=== PATIENT | male | born 1995 | race Caucasian/White ===

== ENCOUNTER 2017-03-15 12:39 | Inpatient (IN) | payer OTHER ==
[2017-03-15 13:38] LABS: Hematocrit 43 % (42-52); Hemoglobin 14.1 g/dl (14.0-18.0); Mean Corpuscular HGB Conc 33 g/dl (31-36); Mean Corpuscular Hemoglobin 27 pg (27-31); Mean Corpuscular Volume 83 fL (80-94); Mean Platelet Volume 9 um3 (7.4-10.4); Red Blood Count 5.18 10^6/ul (4.0-5.4); Red Cell Distribution Width 17 % (10.5-15); White Blood Count 4.8 10^3/ul (3.5-10.8)
[2017-03-15 13:51] LABS: ALT 22 U/L (7-52); AST 18 U/L (13-39); Albumin 4.3 g/dL (3.2-5.2); Alkaline Phosphatase 39 U/L (34-104); Anion Gap 1 mmol/L (2-11); BUN/Creatinine Ratio 17.5 (8-20); Blood Urea Nitrogen 17 mg/dL (6-24); CO2 Carbon Dioxide 32 mmol/L (22-32); Calcium 9.9 mg/dL (8.6-10.3); Chloride 101 mmol/L (101-111); EGFR African American 123.3 (>60); EGFR Non-African American 95.9 (>60); Glucose 87 mg/dL (70-100); Sodium 134 mmol/L (133-145); Total Protein 7.3 g/dL (6.4-8.9)
[2017-03-15 14:01] LABS: Benzodiazepine Urine Screen None Detected (None Detect)
[2017-03-15 14:09] LABS: Acetaminophen < 15 mcg/mL; Alcohol < 10 mg/dL (<10); Salicylate < 2.50 mg/dL (<30)
[2017-03-15 14:22] LABS: TSH (Thyroid Stimulating Horm) 0.38 mcIU/mL (0.34-5.60)
[2017-03-15] MEDS ORDERED: Al Hydrox/Mg Hydrox/Simet LIQ* 30 ML UDC PO PRN (22:45)
[2017-03-15] MEDS ORDERED: Acetaminophen TAB* 325 MG PO PRN (22:45)
--- NOTE | 2017-03-16 05:36 | ED ---
Ami Madsen Nilda, scribed for Haris Kaur MD on 03/15/17 at 1909 . Progress - Progress Note Progress Note: This patient was signed out by Dr. Bach, awaiting MHE. Mental health evaluators recommend inpatient hospitalization. Pt is stable and will be admitted for inpatient hospitalization. - Consult/PCP Time Called: 17:00 Course/Dx - Diagnoses Provider Diagnoses: Suicidal ideation The documentation as recorded by the Ami de jesus Nilda accurately reflects the service I personally performed and the decisions made by Natasha milan Abdul, MD.
--- NOTE | 2017-03-16 07:47 | ED ---
Ramez Madsen Angela, scribed for Db Bach MD on 03/15/17 at 1304 . Psychiatric Complaint - HPI Summary HPI Summary: This pt is a 22 y/o male presenting [facility] by [facility] c/o depression and SI. Pt reports difficulty sleeping, decreased appetite , and SI thoughts. He denies SI plan. Pt denies any prior suicide attempts. Pt was prescribed medications but had not taken it until yesterday, which he notes made it worse. PMHx includes liver CA (diagnosed 2014 in [place]). Pt has 2 partial liver surgery, one in 2014 and the other in 2016. Pt denies tobacco, drug, and alcohol use. - History Of Current Complaint Chief Complaint: EDMentalHealth Time Seen by Provider: 03/15/17 12:49 Hx Obtained From: Patient Onset/Duration: Lasting Days, Still Present Timing: Days Character: Depressed Aggravating Factor(s): Medication Non-compliance Associated Signs And Symptoms: Positive: Sleep Disturbance, Appetite Change Has Suicidal: Reports: Thoughts. Denies: With A Plan - Allergies/Home Medications Allergies/Adverse Reactions: Allergies Allergy/AdvReac Type Severity Reaction Status Date / Time No Known Allergies Allergy Verified 03/15/17 12:45 PMH/Surg Hx/FS Hx/Imm Hx Endocrine/Hematology History: Denies: Hx Diabetes Cardiovascular History: Denies: Hx Hypertension History: Denies: Hx Dialysis, Hx Renal Disease - Cancer History Cancer Type, Location and Year: Liver, 2014 - Surgical History Surgery Procedure, Year, and Place: Liver resection June 2014 and 2016. Infectious Disease History: No Infectious Disease History: Denies: Traveled Outside the [place] in Last 30 Days - Family History Known Family History: Negative: Cardiac Disease, Hypertension, Diabetes - Social History Alcohol Use: None Substance Use Type: Reports: None Smoking Status (MU): Never Smoked Tobacco Review of Systems Constitutional: Other - decreased appetite, difficulty sleeping Negative: Fever, Chills Eyes: Negative ENT: Negative Cardiovascular: Negative Respiratory: Negative Psychological: Other - SI thoughts Positive: Depressed. Negative: Other - SI plan All Other Systems Reviewed And Are Negative: Yes Physical Exam - Summary Physical Exam Summary: VITAL SIGNS: Reviewed. GENERAL: Patient is a well-developed and nourished male who is lying comfortable in the stretcher. Patient is not in any acute respiratory distress. HEAD AND FACE: No signs of trauma. No ecchymosis, hematomas or skull depressions. No sinus tenderness. EYES: PERRLA, EOMI x 2, No injected conjunctiva, no nystagmus. EARS: Hearing grossly intact. Ear canals and tympanic membranes are within normal limits. MOUTH: Oropharynx within normal limits. NECK: Supple, trachea is midline, no adenopathy, no JVD, no carotid bruit, no c- spine tenderness, neck with full ROM. CHEST: Symmetric, no tenderness at palpation LUNGS: Clear to auscultation bilaterally. No wheezing or crackles. CVS: Regular rate and rhythm, S1 and S2 present, no murmurs or gallops appreciated. ABDOMEN: Soft, non-tender. No signs of distention. No rebound no guarding, and no masses palpated. Bowel sounds are normal. EXTREMITIES: FROM in all major joints, no edema, no cyanosis or clubbing. NEURO: Alert and oriented x 3. No acute neurological deficits. Speech is normal and follows commands. SKIN: Dry and warm PSYCH: Depressed, quiet, stoic appearance. Triage Information Reviewed: Yes Vital Signs On Initial Exam: Initial Vitals Temp Pulse Resp BP Pulse Ox 98.2 F 50 15 126/74 98 03/15/17 12:43 03/15/17 12:43 03/15/17 12:43 03/15/17 12:43 03/15/17 12:43 Vital Signs Reviewed: Yes Diagnostics - Vital Signs Vital Signs Temp Pulse Resp BP Pulse Ox 03/15/17 12:43 98.2 F 50 15 126/74 98 - Laboratory Result Diagrams: 03/15/17 13:18 03/15/17 13:18 Lab Statement: Any lab studies that have been ordered have been reviewed, and results considered in the medical decision making process. Course/Dx - Course Assessment/Plan: This pt is a 22 y/o male presenting to [facility] referred by [facility] c/o depression. Pt reports difficulty sleeping, decreased appetite, and SI thoughts. He denies SI plan. Pt denies any prior suicide attempts. Pt was prescribed medications but had not taken it until yesterday, which he notes made it worse. PMHx includes liver CA (diagnosed 2014 in [place]). Pt has 2 partial liver surgery, one in 2014 and the other in 2016. Pt denies tobacco, drug, and alcohol use. All blood work within normal limits except for positive cannabinoids. Pt is medically cleared. He is waiting for MHE. Pt will be signed out to the next ER attending to follow up on mental health pelletizer tender's recommendations. - Differential Dx/Clinical Impression Provider Diagnosis: Suicidal ideation Discharge - Discharge Plan Condition: Stable Disposition: OTHER Discharge Disposition Comment: signed out at shift change, pending dispo, awaiting MHE. Referrals: No Primary Care Phys,NOPCP [Medical Doctor] - The documentation as recorded by the Ramez de jesus Angela accurately reflects the service I personally performed and the decisions made by me, Db Bach MD.
[2017-03-16] MEDS: Vitamin THERAPEUTIC TAB PO SCH (09:36)
[2017-03-16 14:21] LABS: Urine Bilirubin Negative (Negative); Urine Glucose Negative (Negative); Urine Nitrite Negative (Negative)
--- NOTE | 2017-03-16 19:04 | HP ---
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 This is his first lifetime psychiatric hospitalization. CHIEF COMPLAINT: "I have thought about ending my life seriously." HISTORY OF PRESENT ILLNESS: Schuyler reports that he has been depressed ever since he was a child off and on. Recently, his depressive symptoms have worsened and he does not have any desire to do anything, but end his life. He has been feeling sad and was not experiencing any pleasure out of activities that he found pleasurable in the past such as playing soccer or doing chemistry. He also reports that he has been feeling helpless, hopeless, and worthless. Denies any guilt feeling. He had a plan to soak a ski mask in chloroform wear it and pour more chloroform to pass out and never wake up. On today's evaluation, he has not thought about any plan, but continues to have desire to end his life. He denies any manic, hypomanic, or psychotic symptoms. He has been experiencing some difficulty with his school work and recurrence of his liver cancer has been on his mind all the time. PAST PSYCHIATRIC HISTORY: Although, he suffered from depression ever since he was a child. He never received ongoing treatments. He went to [place] and they tried him on antidepressant Pristiq, which he could not tolerate. PAST MEDICAL HISTORY: He has a history of liver cancer, which can only be excised, it is not treatable with chemo or radiation therapy. ALLERGIES: No known drug allergies. SUBSTANCE ABUSE HISTORY: He denies using any street drugs including marijuana, but his urine drug screen was positive for cannabinoids. FAMILY HISTORY: Denies family history of mental illness, attempted or completed suicide. 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 He is from [place]. Reports that he has not been doing that good in school. He does not have any significant relationship. He reports that he received some treatment at around 9 or 10 after he tried to kill himself. He enjoyed work in soccer and had some head trauma from soccer. He reports that his family has been supportive. He has supportive friends and the program has been generally supportive to him. PHYSICAL EXAMINATION Physical exam was offered; however, he declined because that was dinner time and dinner was being served. He did not appear to be in any physical distress. I reviewed physical done in the emergency department, which was basically unremarkable. Vital signs shows a blood pressure of 126/74, pulse 50, respirations 15, temperature 98.2, pulse ox 98% on room air. LABORATORY DATA: Labs done included, WBC with differential, chemistry profile , urinalysis, urine drug screen, and tox screen. WBC count was 4.8, hemoglobin 14.1, hematocrit 43, platelet count 147. Chem profile shows a sodium level of 134, potassium 4, chloride 101, carbon dioxide 32, BUN 17, creatinine 0.97. Urinalysis unremarkable. UDS was positive for cannabinoids. 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 He had another suicide attempt at around age 10. He has a diagnosis of liver cancer diagnosed in 2014 in [place]; had 2 liver surgeries, one in 2014 and the other this year. The liver cancer keeps reoccurring, causing severe stress in him. DIAGNOSTIC IMPRESSION: MENTAL HEALTH DIAGNOSIS: Major depressive disorder, recurrent, severe without psychotic features. PHYSICAL HEALTH DIAGNOSIS: Liver carcinoma, status post partial removal of the liver cancer. TREATMENT RECOMMENDATIONS: Schuyler will remain hospitalized on behavioral health unit for his safety, initiation of treatments, and stabilization of acute depressive symptoms. His code status will be full. Supportive milieu, individual, and group therapy will be initiated and he will be encouraged to participate. He has agreed to try Remeron low dose. Risks, benefits, and alternatives to different treatments explained and he would like to try Remeron. I will prescribe 7.5 mg of Remeron starting tonight and we will defer further management to his assigned psychiatrist on the unit. [id number]/[facility] #: [id number] [facility]PITAL CENTERJosafat
[2017-03-17] MEDS: Vitamin THERAPEUTIC TAB PO SCH (09:51)
[2017-03-17] MEDS ORDERED: hydrOXYzine HCL TAB* 50 MG PO PRN (14:15)
[2017-03-17] MEDS ORDERED: buPROPion TAB* 100 MG PO ONE (14:15)
--- NOTE | 2017-03-17 14:29 | PN ---
Subjective - Subjective Service Type: 87257 Hosp care 15 min low complexity Subjective: Patient presents as dysphoric and anxious. He endorses SI and states this worsened when he took one dose of an old Rx of pristique. He reports poor concentration and motivation. He reports difficulty with maintaining sleep schedule. He is agreeable to suggestions by staff. 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 Objective - Appearance Appearance: Thin Framed Dysmorphic Features: Yes Hygiene: Normal Grooming: Fairly Well Kept - Behavior Psychomotor Activities: Normal Exhibits Abnormal Movement: No - Attitude and Relatedness Attitude and Relatedness: Cooperative Eye Contact: Good - Speech Quality: Unpressured Latencies: Normal Quantity: Appropriate - Mood Patient's Decription of Mood: "Anxious" - Affect Observed Affect: Depressed Affect Consistent with: Dysphoria - Thought Process Patient's Thought Process: Coherent, Goal Directed Thought Content: Yes Passive Wish, Yes Suicidal Planning, No Homicidal Ideation, No Paranoid Ideation - Sensorium Experiencing Hallucinations: No, Sensorium is Clear Type of Hallucinations: Visual: No, Auditory: No, Command: No - Level of Consciousness Level of Consciousness: Alert Orientation: Yes Intact, Yes Orientated to Time, Yes Orientated to Place, Yes Orientated to Person - Impulse Control Impulse Control: Poor - Insight and Judgement Insight and Judgement: Fair - Group Participation Particating in Group Activities: Yes - Medication Management Medication Management Adherence: Yes Assessment - Assessment Merits Inpatient Hospitalization: For Immediate Safety, For Stabilization, To Initiate Treatment, For Discharge Planning Inpatient DSM-IV Dx: major depressive d/o with anxious distress; hx of liver ca Clinical Impression: 22yo white male, 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 He presents with increased depressed mood, SI and anxiety. He merits hospitalization for immediate safety and stabilization. Plan - Plan Treatment Plan: Name: CHEPE SULLIVAN Birthdate: 1995 [id number] continue acute intensive psychiatric treatment. add buproprion and hydroxyzine. Monitor LFTs. Decrease to q30min observation, allow use of own computer. Continued Medication Management: Different Medication Medications: Current Medications Acetaminophen (Tylenol Tab*) 650 mg PO Q4H PRN PRN Reason: PAIN or TEMP > 101 F Al Hydrox/Mg Hydrox/Simethicone (Maalox Plus*) 30 ml PO Q4H PRN PRN Reason: INDIGESTION Bupropion HCl (Wellbutrin Xl *) 150 mg PO DAILY [facility] PRN Reason: Protocol Hydroxyzine HCl (Atarax Tab*) 50 mg PO Q6H PRN PRN Reason: agitation/anxiety/insomnia Multivitamins (Theragran Tab*) 1 tab PO DAILY [facility] Last Admin: 03/17/17 09:51 Dose: 1 tab - Discharge Plan Discharge Plan: Outpatient Follow Up Outpatient Program: Counseling/Psych Services at [place]
[2017-03-18] MEDS: Vitamin THERAPEUTIC TAB PO SCH (08:10)
[2017-03-18] MEDS: BuPROPion XL* 150 MG TAB.XL PO SCH (08:10)
--- NOTE | 2017-03-18 14:36 | PN ---
Subjective - Subjective Service Type: 20850 Hosp care 15 min low complexity Subjective: Schuyler is calm, cooperative and pleasant. He denies any untoward effects from bupropion therapy thus far and has transitioned to the extended release formulation of this. He denies SI here in the hospital but is still stressed about his circumstances and cannot yet contract for safety if discharged. He is social with peers and going to groups per staff notes. Objective - Appearance Appearance: Well Developed/Nourished Dysmorphic Features: No Hygiene: Normal Grooming: Well Kept - Behavior Psychomotor Activities: Normal Exhibits Abnormal Movement: No - Attitude and Relatedness Attitude and Relatedness: Cooperative Eye Contact: Good - Speech Quality: Unpressured Latencies: Normal Quantity: Appropriate - Mood Patient's Decription of Mood: "Okay" - Affect Observed Affect: Fair Affect Consistent with: Dysphoria - Thought Process Patient's Thought Process: Coherent Thought Content: No Passive Wish, No Suicidal Planning, No Homicidal Ideation, No Paranoid Ideation - Sensorium Experiencing Hallucinations: No, Sensorium is Clear Type of Hallucinations: Visual: No, Auditory: No, Command: No - Level of Consciousness Level of Consciousness: Alert Orientation: Yes Intact, Yes Orientated to Time, Yes Orientated to Place, Yes Orientated to Person - Impulse Control Impulse Control: Tenuous - Insight and Judgement Insight and Judgement: Fair - Group Participation Particating in Group Activities: Yes - Medication Management Medication Management Adherence: Yes Assessment - Assessment Merits Inpatient Hospitalization: For Immediate Safety, For Stabilization Inpatient DSM-IV Dx: major depressive d/o with anxious distress; hx of liver ca Clinical Impression: 22 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 Plan - Plan Treatment Plan: Name: SCHUYLER SULLIVAN Birthdate: 1995 [id number] Patient tolerating bupropion XL 150mg PO qam. Continue inpatient level services. Continued Medication Management: Start Medication Medications: Current Medications Acetaminophen (Tylenol Tab*) 650 mg PO Q4H PRN PRN Reason: PAIN or TEMP > 101 F Al Hydrox/Mg Hydrox/Simethicone (Maalox Plus*) 30 ml PO Q4H PRN PRN Reason: INDIGESTION Bupropion HCl (Wellbutrin Xl *) 150 mg PO DAILY [facility] PRN Reason: Protocol Last Admin: 03/18/17 08:10 Dose: 150 mg Hydroxyzine HCl (Atarax Tab*) 50 mg PO Q6H PRN PRN Reason: agitation/anxiety/insomnia Multivitamins (Theragran Tab*) 1 tab PO DAILY [facility] Last Admin: 03/18/17 08:10 Dose: 1 tab - Discharge Plan Discharge Plan: Inpatient Hospitalization
[2017-03-19] MEDS: BuPROPion XL* 150 MG TAB.XL PO SCH (08:33)
[2017-03-19] MEDS: Vitamin THERAPEUTIC TAB PO SCH (08:34)
[2017-03-20] MEDS: Vitamin THERAPEUTIC TAB PO SCH (08:21)
[2017-03-20] MEDS: BuPROPion XL* 150 MG TAB.XL PO SCH (08:21)
[2017-03-20] MEDS: Methylphenidate TAB* 5 MG PO SCH (12:36)
--- NOTE | 2017-03-20 12:46 | PN ---
Subjective - Subjective Service Type: 00454 Hosp care 25 min moderate complexity Subjective: Patient reports improvement in depressed mood and negative thoughts. He also reports decrease in anxiety. He states his biggest concern is poor concentration. He states he fears not being able to focus on academic responsibilities and then returning to emotional state that led to hospitalization. 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 He agrees to trial of methylphenidate. He was given written information and questions answered. Patient reported to nursing staff he felt somewhat "jittery" and c/o "itchy eyes." Patient reports sleeping moderately well, except for hospital environment. He is notified of use of hydroxyzine for anxiety/seasonal allergies and sleep. Objective - Appearance Appearance: Thin Framed Dysmorphic Features: No Hygiene: Normal Grooming: Fairly Well Kept - Behavior Psychomotor Activities: Normal Exhibits Abnormal Movement: No - Attitude and Relatedness Attitude and Relatedness: Cooperative Eye Contact: Good - Speech Quality: Unpressured Latencies: Normal Quantity: Appropriate - Mood Patient's Decription of Mood: "Okay" - Affect Observed Affect: Good Affect Consistent with: Euthymia - Thought Process Patient's Thought Process: Coherent, Goal Directed Thought Content: No Passive Wish, No Suicidal Planning, No Homicidal Ideation, No Paranoid Ideation - Sensorium Experiencing Hallucinations: No, Sensorium is Clear Type of Hallucinations: Visual: No, Auditory: No, Command: No - Level of Consciousness Orientation: Yes Intact, Yes Orientated to Time, Yes Orientated to Place, Yes Orientated to Person - Impulse Control Impulse Control: Intact - Insight and Judgement Insight and Judgement: Good - Group Participation Particating in Group Activities: No - Medication Management Medication Management Adherence: Yes Assessment - Assessment Merits Inpatient Hospitalization: For Immediate Safety, For Stabilization, To Initiate Treatment, For Discharge Planning, Pending Safe DC Plan Inpatient DSM-IV Dx: major depressive d/o with anxious distress; adhd; hx of liver ca Clinical Impression: 22yo white male, 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 He presents with increased depressed mood, SI and anxiety. He reports poor concentration, restlessness, inattention, procrastination. He states these have affected his ability to perform academically. He merits hospitalization for immediate safety and stabilization. Plan - Plan Treatment Plan: Name: CHEPE SULLIVAN Birthdate: 1995 [id number] continue acute intensive psychiatric treatment. obtain EKG and add methylphenidate. Monitor LFTs. Allow staff pass. Continued Medication Management: Different Medication Medications: Current Medications Acetaminophen (Tylenol Tab*) 650 mg PO Q4H PRN PRN Reason: PAIN or TEMP > 101 F Al Hydrox/Mg Hydrox/Simethicone (Maalox Plus*) 30 ml PO Q4H PRN PRN Reason: INDIGESTION Bupropion HCl (Wellbutrin Xl *) 150 mg PO DAILY [facility] PRN Reason: Protocol Last Admin: 03/20/17 08:21 Dose: 150 mg Hydroxyzine HCl (Atarax Tab*) 50 mg PO Q6H PRN PRN Reason: agitation/anxiety/insomnia Methylphenidate HCl (Ritalin Tab*) 5 mg PO DAILY [facility] Last Admin: 03/20/17 12:36 Dose: 5 mg Multivitamins (Theragran Tab*) 1 tab PO DAILY [facility] Last Admin: 03/20/17 08:21 Dose: 1 tab - Discharge Plan Discharge Plan: Outpatient Follow Up Outpatient Program: Counseling/Psych Services at [place]
[2017-03-21] MEDS: Methylphenidate TAB* 5 MG PO SCH (09:03)
[2017-03-21] MEDS: BuPROPion XL* 150 MG TAB.XL PO SCH (09:03)
[2017-03-21] MEDS: Vitamin THERAPEUTIC TAB PO SCH (09:04)
[2017-03-21] MEDS: Methylphenidate ER TAB* 18 MG PO SCH (12:30)
--- NOTE | 2017-03-21 16:33 | PN ---
Subjective - Subjective Service Type: 57398 Hosp care 15 min low complexity Subjective: Patient reports improved concentration and attention. He is agreeable to start methylphenidate ER. He denies side effect of anorexia and states he is motivated to eat healthy. He states he is no longer having negative thoughts or severe anxiety. He states he slept well with the exception of a roommate who talks in his sleep. He projects he will be ready for discharge tomorrow. Objective - Appearance Appearance: Thin Framed Dysmorphic Features: No Hygiene: Normal Grooming: Well Kept - Behavior Psychomotor Activities: Normal Exhibits Abnormal Movement: No - Attitude and Relatedness Attitude and Relatedness: Cooperative Eye Contact: Good - Speech Quality: Unpressured Latencies: Normal Quantity: Appropriate - Mood Patient's Decription of Mood: "Good" - Affect Observed Affect: Good Affect Consistent with: Euthymia - Thought Process Patient's Thought Process: Coherent, Goal Directed Thought Content: No Passive Wish, No Suicidal Planning, No Homicidal Ideation, No Paranoid Ideation - Sensorium Experiencing Hallucinations: No, Sensorium is Clear Type of Hallucinations: Visual: No, Auditory: No, Command: No - Level of Consciousness Level of Consciousness: Alert Orientation: Yes Intact, Yes Orientated to Time, Yes Orientated to Place, Yes Orientated to Person - Impulse Control Impulse Control: Intact - Insight and Judgement Insight and Judgement: Good - Group Participation Particating in Group Activities: Yes - Medication Management Medication Management Adherence: Yes Assessment - Assessment Merits Inpatient Hospitalization: For Immediate Safety, For Stabilization, Consolidate Improvements Inpatient DSM-IV Dx: major depressive d/o with anxious distress; adhd; hx of liver ca Clinical Impression: 22yo white male, 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 He presents with increased depressed mood, SI and anxiety. He reports poor concentration, restlessness, inattention, procrastination. He states these have affected his ability to perform academically. He merits hospitalization for immediate safety and stabilization. Plan - Plan Treatment Plan: Name: CHEPE SULLIVAN Birthdate: 1995 [id number] continue acute intensive psychiatric treatment. Monitor LFTs. Allow staff pass. Continued Medication Management: Different Medication Medications: Current Medications Acetaminophen (Tylenol Tab*) 650 mg PO Q4H PRN PRN Reason: PAIN or TEMP > 101 F Al Hydrox/Mg Hydrox/Simethicone (Maalox Plus*) 30 ml PO Q4H PRN PRN Reason: INDIGESTION Bupropion HCl (Wellbutrin Xl *) 150 mg PO DAILY [facility] PRN Reason: Protocol Last Admin: 03/21/17 09:03 Dose: 150 mg Hydroxyzine HCl (Atarax Tab*) 50 mg PO Q6H PRN PRN Reason: agitation/anxiety/insomnia Methylphenidate HCl (Concerta Er Tab*) 18 mg PO DAILY [facility] Last Admin: 03/21/17 12:30 Dose: 18 mg Multivitamins (Theragran Tab*) 1 tab PO DAILY [facility] Last Admin: 03/21/17 09:04 Dose: 1 tab - Discharge Plan Discharge Plan: Outpatient Follow Up Outpatient Program: Counseling/Psych Services at [place]
[2017-03-22 07:10] LABS: Albumin 4.3 g/dL (3.2-5.2); Direct Bilirubin 0.2 mg/dL (0.03-0.18); Globulin 2.9 g/dL (2-4); Indirect Bilirubin 0.9 mg/dL (0.3-1.0); Total Bilirubin 1.1 mg/dL (0.2-1.0); Total Protein 7.2 g/dL (6.4-8.9)
[2017-03-22 08:46] VITALS: BP 118/81
[2017-03-22] MEDS: Vitamin THERAPEUTIC TAB PO SCH (08:55)
[2017-03-22] MEDS: Methylphenidate ER TAB* 18 MG PO SCH (08:55)
[2017-03-22] MEDS: BuPROPion XL* 150 MG TAB.XL PO SCH (08:55)
--- NOTE | 2017-03-22 20:14 | DS ---
Subjective - Subjective Service Types: [id number] [facility] Day Mgmt simple under 30 min Discharge Date: 03/22/17 Subjective: Patient reports much improved mood and denies anxiety. Schuyler has been meticulous about observing medication effects and potential side effects. He denies troublesome adverse effects. He states he is able to concentrate on tasks and feels confident that he will be better able to continue academic responsibilities. He denies suicidal ideation or passive wish. He is agreeable to f/u at [facility] and [facility] for primary care. Objective - Appearance Appearance: Well Developed/Nourished Dysmorphic Features: No Hygiene: Normal Grooming: Well Kept - Behavior Psychomotor Activities: Normal Exhibits Abnormal Movement: No - Attitude and Relatedness Attitude and Relatedness: Well Related Eye Contact: Good - Speech Quality: Unpressured Latencies: Normal Quantity: Appropriate - Mood Patient's Decription of Mood: "Great" - Affect Observed Affect: Good Affect Consistent with: Euthymia - Thought Process Patient's Thought Process: Coherent, Goal Directed Thought Content: No Passive Wish, No Suicidal Planning, No Homicidal Ideation, No Paranoid Ideation - Sensorium Experiencing Hallucinations: No, Sensorium is Clear Type of Hallucinations: Visual: No, Auditory: No, Command: No - Level of Consciousness Level of Consciousness: Alert Orientation: Yes Intact, Yes Orientated to Time, Yes Orientated to Place, Yes Orientated to Person - Impulse Control Impulse Control: Intact - Insight and Judgement Insight and Judgement: Good - Group Participation Particating in Group Activities: Yes - Medication Management Medication Management Adherence: Yes Treatment Course & Assessment Clinical Course & Impression: 22yo white male, 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 He presented to the ED after an intake at [facility], with reports of increased depressed mood, SI and anxiety. Patient had plans to utilize knowledge of chemistry to create a chloroform mask. Also, he reported poor concentration, restlessness, inattention, procrastination. He states these have affected his ability to perform academically and thus created hopelessness to the extent of thoughts of taking his own life. Schuyler was admitted to the [facility] on voluntary status, full code status. He was placed on 15min checks for safety and encouraged to participate in therapeutic milieu, individual sessions with staff and psychoeducational groups. He quickly acclimated to the unit and was interactive with select peers and staff. Upon psychiatric interview, he was cooperative and knowledgeable about risks of psychopharmacology and his history of liver cancer. He agreed to suggestion of trial for buproprion for depressed mood and associated negative symptoms. He reported mild but immediate improvement in mood and agreed to remain at 150mg due to hepatic history. He continued to endorse inattention, distractibility, disorganization, procrastination. He states that he and his mother (also a forensic chemist) have discussed the liklihood of undiagnosed ADHD throughout his education. He identifies worsening symptoms of depression and ADHD since first being treated for liver cancer. Patient agreed to obtain baseline ECG (NSR) and trial methylphenidate. He reported a notable improvement and denied side effects. Patient was given methlyphenidate ER 18mg and reported satisfaction. Patient expressed desire to be discharged and to resume his graduate work. He presented as euthymic and forward thinking. He was safe on all checks and had been decreased to q30 min observation. He was allowed staff pass. Schuyler agreed to continue with counseling and medication management through [facility]. Due to obligation to treat in least restrictive setting, discharge was decided upon by treatment team. Labs performed during admission: Laboratory Results WBC 4.8 10^3/ul (3.5-10.8) 03/15/17 13:18 RBC 5.18 10^6/ul (4.0-5.4) 03/15/17 13:18 Hgb 14.1 g/dl (14.0-18.0) 03/15/17 13:18 Hct 43 % (42-52) 03/15/17 13:18 MCV 83 fL (80-94) 03/15/17 13:18 MCH 27 pg (27-31) 03/15/17 13:18 MCHC 33 g/dl (31-36) 03/15/17 13:18 RDW 17 % (10.5-15) H 03/15/17 13:18 Plt Count 147 10^3/ul (150-450) L 03/15/17 13:18 MPV 9 um3 (7.4-10.4) 03/15/17 13:18 Neut % (Auto) 50.9 % (38-83) 03/15/17 13:18 Lymph % (Auto) 38.0 % (25-47) 03/15/17 13:18 [place] % (Auto) 9.1 % (1-9) H 03/15/17 13:18 Eos % (Auto) 1.6 % (0-6) 03/15/17 13:18 Baso % (Auto) 0.4 % (0-2) 03/15/17 13:18 Absolute Neuts (auto) 2.4 10^3/ul (1.5-7.7) 03/15/17 13:18 Absolute Lymphs (auto) 1.8 10^3/ul (1.0-4.8) 03/15/17 13:18 Absolute Monos (auto) 0.4 10^3/ul (0-0.8) 03/15/17 13:18 Absolute Eos (auto) 0.1 10^3/ul (0-0.6) 03/15/17 13:18 Absolute Basos (auto) 0 10^3/ul (0-0.2) 03/15/17 13:18 Absolute Nucleated RBC 0 10^3/ul 03/15/17 13:18 Nucleated RBC % 0.1 03/15/17 13:18 Sodium 134 mmol/L (133-145) 03/15/17 13:18 Potassium 4.0 mmol/L (3.5-5.0) 03/15/17 13:18 Chloride 101 mmol/L (101-111) 03/15/17 13:18 Carbon Dioxide 32 mmol/L (22-32) 03/15/17 13:18 Anion Gap 1 mmol/L (2-11) L 03/15/17 13:18 BUN 17 mg/dL (6-24) 03/15/17 13:18 Creatinine 0.97 mg/dL (0.67-1.17) 03/15/17 13:18 Est GFR ( Amer) 123.3 (>60) 03/15/17 13:18 Est GFR (Non-Af Amer) 95.9 (>60) 03/15/17 13:18 BUN/Creatinine Ratio 17.5 (8-20) 03/15/17 13:18 Glucose 87 mg/dL (70-100) 03/15/17 13:18 Calcium 9.9 mg/dL (8.6-10.3) 03/15/17 13:18 Total Bilirubin 1.10 mg/dL (0.2-1.0) H 03/22/17 06:36 Direct Bilirubin 0.20 mg/dL (0.03-0.18) H 03/22/17 06:36 Indirect Bilirubin 0.9 mg/dL (0.3-1.0) 03/22/17 06:36 AST 25 U/L (13-39) 03/22/17 06:36 ALT 35 U/L (7-52) 03/22/17 06:36 Alkaline Phosphatase 44 U/L (34-104) 03/22/17 06:36 Total Protein 7.2 g/dL (6.4-8.9) 03/22/17 06:36 Albumin 4.3 g/dL (3.2-5.2) 03/22/17 06:36 Globulin 2.9 g/dL (2-4) 03/22/17 06:36 Albumin/Globulin Ratio 1.5 (1-3) 03/22/17 06:36 Vit D 1,25-Dihydroxy 33 pg/mL (18-64) 03/15/17 13:18 TSH 0.38 mcIU/mL (0.34-5.60) 03/15/17 13:18 Urine Color Yellow 03/16/17 13:24 Urine Appearance Clear 03/16/17 13:24 Urine pH 6.0 (5-9) 03/16/17 13:24 Ur Specific [place] 1.020 (1.010-1.030) 03/16/17 13:24 Urine Protein Negative (Negative) 03/16/17 13:24 Urine Ketones Negative (Negative) 03/16/17 13:24 Urine Blood Negative (Negative) 03/16/17 13:24 Urine Nitrate Negative (Negative) 03/16/17 13:24 Urine Bilirubin Negative (Negative) 03/16/17 13:24 Urine Urobilinogen Negative (Negative) 03/16/17 13:24 Ur Leukocyte Esterase Negative (Negative) 03/16/17 13:24 Urine Glucose Negative (Negative) 03/16/17 13:24 Salicylates < 2.50 mg/dL (<30) 03/15/17 13:18 Urine Opiates Screen None detected (None Detect) 03/15/17 13:18 Acetaminophen < 15 mcg/mL 03/15/17 13:18 Ur Barbiturates Screen None detected (None Detect) 03/15/17 13:18 Ur Phencyclidine Scrn None detected (None Detect) 03/15/17 13:18 Ur Amphetamines Screen None detected (None Detect) 03/15/17 13:18 U Benzodiazepines Scrn None detected (None Detect) 03/15/17 13:18 Urine Cocaine Screen None detected (None Detect) 03/15/17 13:18 U Cannabinoids Screen Presumptive positive (None Detect) H 03/15/17 13:18 Serum Alcohol < 10 mg/dL (<10) 03/15/17 13:18 03/15/17 03/22/17 13:18 06:36 Total Bilirubin 1.10 H Direct Bilirubin 0.20 H Indirect Bilirubin 0.9 AST 25 ALT 35 Alkaline Phosphatase 44 Total Protein 7.2 Albumin 4.3 Globulin 2.9 Albumin/Globulin Ratio 1.5 Vit D 1,25-Dihydroxy 33 Merits Inpatient Hospitalization: No Clear for Discharge: Adequate Clinical Respons, Acceptable Safety Profile Inpatient DSM-IV Dx: major depressive d/o with anxious distress; adhd; hx of liver ca Discharge Planning - Discharge Planning Discharge Plan: Outpatient Follow Up Outpatient Program: Counseling/Psych Services at [facility] Recommendations for Continuing Care: Medication Management, Psychotherapy Medications: Bupropion XL* [Wellbutrin XL *] 150 mg PO DAILY #30 tab 03/22/17 [Rx] Methylphenidate ER TAB* [Concerta ER TAB*] 18 mg PO DAILY #30 tab.er MDD 18mg [Rx] The above were electronically prescribed to [facility] pharmacy. Discharge Planning: Prescriptions provided for discharge [x] Yes [] No Follow up care details as per social work arrangements. [facility] 03/22/17 at 3pm Patient response to discharge plan: [x] eager for discharge [x] agreeable with discharge plan [] ambivalent about discharge [] disagrees with discharge today
== END 2017-03-22 12:35 | disposition home or self-care (01) | DRG 885 ==
LOC: ED 12:39 → BSU 22:00
PROVIDERS: ADMIT Psychiatry & Neurology Psychiatry; ATTEND Psychiatry & Neurology Psychiatry
DX: F33.2 Major depressive disorder, recurrent severe without psychotic features (principal); C22.7 Other specified carcinomas of liver; R45.851 Suicidal ideations; F41.8 Other specified anxiety disorders; F90.0 Attention-deficit hyperactivity disorder, predominantly inattentive type
CPT/HCPCS: 36415; 80053; 80076; 80307; 80320; 80329; 81003; 82652; 84443; 85025; 93005; 99222; 99231; 99232; A9270-GY; G0480

== ENCOUNTER 2017-08-21 20:28 | Emergency (ER) | payer OTHER ==
[2017-08-21] MEDS ORDERED: NS 0.9% 1000 ML* 1,000 ML IV ONE (21:34)
[2017-08-21 22:04] LABS: ABS Basophils 0 10^3/ul (0-0.2); ABS Eosinophils 0 10^3/ul (0-0.6); ABS Lymphocytes 1.2 10^3/ul (1.0-4.8); ABS Monocytes 0.4 10^3/ul (0-0.8); ABS Neutrophils 2.8 10^3/ul (1.5-7.7); ABS Nucleated RBC 0 10^3/ul; Eosinophil % 0.9 % (0-6); Hematocrit 45 % (42-52); Hemoglobin 15.1 g/dl (14.0-18.0); Lymphocyte % 26.8 % (25-47); Mean Corpuscular HGB Conc 34 g/dl (31-36); Mean Corpuscular Hemoglobin 29 pg (27-31); Mean Corpuscular Volume 86 fL (80-94); Mean Platelet Volume 8.1 um3 (7.4-10.4); Nucleated Red Blood Cells % 0.1; Platelet Count 132 10^3/ul (150-450); Red Blood Count 5.18 10^6/ul (4.0-5.4); Red Cell Distribution Width 14 % (10.5-15); White Blood Count 4.4 10^3/ul (3.5-10.8)
[2017-08-21 22:12] LABS: INR 1.01 (0.77-1.02)
[2017-08-21 22:35] LABS: EGFR Non-African American 65.5 (>60)
[2017-08-21] MEDS ORDERED: Iohexol 350* (CONTRAST) 500 ML MDV IV ONE (22:56)
--- NOTE | 2017-08-21 23:46 | ED ---
Elizabeth Madsen Rebecca, scribed for MichellenhanAbhi on 08/21/17 at 2132 . HPI Chest Pain - HPI Summary HPI Summary: Pt is a 22 y/o M who presents to ED c/o CP. Pain began suddenly about 8 hours FUR STYLIST and has been constant since onset. On triage, pain is moderate, ranked 4/10 and located in the midsternal region. Sx aggravated by deep breaths, yawning, and swallowing, unchanged by movement. Additionally notes mild dizziness and nausea FUR STYLIST which are resolved. Denies vomiting. MRI of abd on 08/11/2017 and chest MRI in 2016. PMHx metastatic liver CA - Dx 3 years ago (June 2014) - surgery in 2014 ([facility] in [place], [place]) and September 2016 (tumor removal above the diaphragm at [facility]). - History of Current Complaint Chief Complaint: EDChestPainROMI Time Seen by Provider: 08/21/17 21:24 Hx Obtained From: Patient Onset/Duration: Started Hours Ago - 8 hours, Still Present Timing: Constant Current Severity: Moderate Pain Intensity: 4 Pain Scale Used: 0-10 Numeric Chest Pain Location: Mid Sternal Aggravating Factor(s): Deep Breaths, Other: - Yawning, swallowing Associated Signs and Symptoms: Positive: Dizziness, Nausea. Negative: Vomiting - Additional Pertinent History Primary Care Physician: ADALBERTO - Allergy/Home Medications Allergies/Adverse Reactions: Allergies Allergy/AdvReac Type Severity Reaction Status Date / Time No Known Allergies Allergy Verified 08/09/17 09:12 PMH/Surg Hx/FS Hx/Imm Hx Endocrine/Hematology History: Denies: Hx Diabetes - DOES TAKE METFORMIN - IS NOT A DIABETIC Cardiovascular History: Denies: Hx Hypertension, Hx Pacemaker/ICD GI History: Reports: Other GI Disorders - 70% of Liver removed due to CA History: Denies: Hx Dialysis, Hx Renal Disease Sensory History: Denies: Hx Contacts or Glasses, Hx Hearing Aid Opthamlomology History: Denies: Hx Contacts or Glasses Psychiatric History: Denies: Hx Eating Disorder, Hx Panic Disorder, Hx of Violent Episodes Against Others - Cancer History Cancer Type, Location and Year: Liver, 2014, 2016 Hx Chemotherapy: No Hx Radiation Therapy: No Hx Palliative Cancer Treatment: No - Surgical History Surgery Procedure, Year, and Place: LIVER RESECTION JUNE 2014;. SECOND LIVER RESECTION 09/2016 WITH MASS REMOVAL FROM AROUND LIVER AND NEAR ESOPHAGUS; Infectious Disease History: No Infectious Disease History: Denies: Traveled Outside the [place] in Last 30 Days - Family History Known Family History: Negative: Cardiac Disease, Hypertension, Diabetes - Social History Alcohol Use: None Substance Use Type: Reports: None Smoking Status (MU): Never Smoked Tobacco Review of Systems Positive: Chest Pain Positive: Nausea - mild - resolved. Negative: Vomiting Neurological: Other - Mild dizziness - resolved All Other Systems Reviewed And Are Negative: Yes Physical Exam - Summary Physical Exam Summary: Appearance: Well appearing, no pain distress Skin: warm, dry, reflects adequate perfusion Head/face: normal Eyes: EOMI, TATIANA ENT: normal Neck: supple, non-tender Respiratory: CTA, breath sounds present Cardiovascular: RRR, pulses symmetrical Abdomen: non-tender, soft, large surgical scar in the RUQ Bowel: present Musculoskeletal: normal, strength/ROM intact Neuro: normal, sensory motor intact, A&Ox3 Triage Information Reviewed: Yes Vital Signs On Initial Exam: Initial Vitals Temp Pulse Resp BP Pulse Ox 98.4 F 78 18 134/78 98 08/21/17 20:32 08/21/17 20:32 08/21/17 20:32 08/21/17 20:32 08/21/17 20:32 Vital Signs Reviewed: Yes Diagnostics - Vital Signs Vital Signs Temp Pulse Resp BP Pulse Ox 08/21/17 20:32 98.4 F 78 18 134/78 98 - Laboratory Lab Results: Lab Results 08/21/17 08/21/17 08/21/17 Range/Units 21:55 21:55 21:55 WBC 4.4 (3.5-10.8) 10^3/ul RBC 5.18 (4.0-5.4) 10^6/ul Hgb 15.1 (14.0-18.0) g/dl Hct 45 (42-52) % MCV 86 (80-94) fL MCH 29 (27-31) pg MCHC 34 (31-36) g/dl RDW 14 (10.5-15) % Plt Count 132 L (150-450) 10^3/ul MPV 8.1 (7.4-10.4) um3 Neut % (Auto) 62.7 (38-83) % Lymph % (Auto) 26.8 (25-47) % [place] % (Auto) 9.4 H (0-7) % Eos % (Auto) 0.9 (0-6) % Baso % (Auto) 0.2 (0-2) % Absolute Neuts (auto) 2.8 (1.5-7.7) 10^3/ul Absolute Lymphs (auto) 1.2 (1.0-4.8) 10^3/ul Absolute Monos (auto) 0.4 (0-0.8) 10^3/ul Absolute Eos (auto) 0 (0-0.6) 10^3/ul Absolute Basos (auto) 0 (0-0.2) 10^3/ul Absolute Nucleated RBC 0 10^3/ul Nucleated RBC % 0.1 INR (Anticoag Therapy) 1.01 (0.77-1.02) APTT 33.1 (26.0-36.3) seconds Sodium (139-145) mmol/L Potassium (3.5-5.0) mmol/L Chloride (101-111) mmol/L Carbon Dioxide (22-32) mmol/L Anion Gap (2-11) mmol/L BUN (6-24) mg/dL Creatinine (0.67-1.17) mg/dL Est GFR ( Amer) (>60) Est GFR (Non-Af Amer) (>60) BUN/Creatinine Ratio (8-20) Glucose (70-100) mg/dL Lactic Acid (0.5-2.0) mmol/L Calcium (8.6-10.3) mg/dL Total Bilirubin (0.2-1.0) mg/dL AST (13-39) U/L ALT (7-52) U/L Alkaline Phosphatase (34-104) U/L Troponin I (<0.04) ng/mL B-Natriuretic Peptide 6 ( - 100) pg/mL Total Protein (6.4-8.9) g/dL Albumin (3.2-5.2) g/dL Globulin (2-4) g/dL Albumin/Globulin Ratio (1-3) 08/21/17 08/21/17 Range/Units 21:55 21:55 WBC (3.5-10.8) 10^3/ul RBC (4.0-5.4) 10^6/ul Hgb (14.0-18.0) g/dl Hct (42-52) % MCV (80-94) fL MCH (27-31) pg MCHC (31-36) g/dl RDW (10.5-15) % Plt Count (150-450) 10^3/ul MPV (7.4-10.4) um3 Neut % (Auto) (38-83) % Lymph % (Auto) (25-47) % [place] % (Auto) (0-7) % Eos % (Auto) (0-6) % Baso % (Auto) (0-2) % Absolute Neuts (auto) (1.5-7.7) 10^3/ul Absolute Lymphs (auto) (1.0-4.8) 10^3/ul Absolute Monos (auto) (0-0.8) 10^3/ul Absolute Eos (auto) (0-0.6) 10^3/ul Absolute Basos (auto) (0-0.2) 10^3/ul Absolute Nucleated RBC 10^3/ul Nucleated RBC % INR (Anticoag Therapy) (0.77-1.02) APTT (26.0-36.3) seconds Sodium 140 (139-145) mmol/L Potassium 4.2 (3.5-5.0) mmol/L Chloride 104 (101-111) mmol/L Carbon Dioxide 30 (22-32) mmol/L Anion Gap 6 (2-11) mmol/L BUN 19 (6-24) mg/dL Creatinine 1.35 H (0.67-1.17) mg/dL Est GFR ( Amer) 84.2 (>60) Est GFR (Non-Af Amer) 65.5 (>60) BUN/Creatinine Ratio 14.1 (8-20) Glucose 92 (70-100) mg/dL Lactic Acid 1.2 (0.5-2.0) mmol/L Calcium 9.8 (8.6-10.3) mg/dL Total Bilirubin 1.00 (0.2-1.0) mg/dL AST 450 H (13-39) U/L ALT 420 H (7-52) U/L Alkaline Phosphatase 131 H (34-104) U/L Troponin I 0.00 (<0.04) ng/mL B-Natriuretic Peptide ( - 100) pg/mL Total Protein 7.7 (6.4-8.9) g/dL Albumin 4.7 (3.2-5.2) g/dL Globulin 3.0 (2-4) g/dL Albumin/Globulin Ratio 1.6 (1-3) Result Diagrams: 08/21/17 21:55 08/21/17 21:55 Lab Statement: Any lab studies that have been ordered have been reviewed, and results considered in the medical decision making process. - CT Chest/Thorax CT Interpretation: Positive (See Comments) - Pneumomediastinum CT Interpretation Completed By: Radiologist - Findings dictated by radiology electronic system engineer. Pending official radiology report. See [employer] for results. - EKG 2031 Cardiac Rate: NL - 64 bpm EKG Rhythm: Sinus Rhythm EKG Interpretation: No acute changes Re-Evaluation - Re-Evaluation First Eval Re-Evaluation Time: 23:25 Comment: Discussing results and transfer plan with the pt. Chest Pain Course/Dx - Course Assessment/Plan: Pt is a 22 y/o M who presents to ED c/o acute onset, constant, midsternal CP since about 8 hours FUR STYLIST. On triage, pain is moderate, ranked 4/ 10. Sx aggravated by deep breaths, yawning, and swallowing, unchanged by movement. Additionally notes mild dizziness and nausea FUR STYLIST which are resolved. Denies vomiting. MRI of abd on 08/11/2017 and chest MRI in 2016. PMHx metastatic liver CA - Dx 3 years ago (June 2014) - surgery in 2014 ([facility] in [place], [place]) and September 2016 (tumor removal above the diaphragm at [facility]). Bloodwork was done, troponin of 0.00. EKG is sinus rhythm. Chest/Thorax CTA revealed pneumomediastinum. In the ED course, pt received fluids. Discussed care of pt with radiology electronic system engineer who dictated chest/thorax CTA findings of pneumomediastinum. Discussed care of pt with [facility] who accepts pt for transfer to ED witha ccepting physician Dr. Carlos. Pt will be transferred to [facility] with Dx of pneumomediastinum, hepatic CA, and chest pain. He understands and agrees. - Chest Pain Differential Diagnosis/HQI/PQRI: ACS, Chest Wall, Lower Respiratory Infection, Pulmonary Embolism - Diagnoses Provider Diagnoses: Chest pain, Pneumomediastinum, Hepatic cancer, Abnormal liver enzymes - Provider Notifications Discussed Care Of Patient With: Radiology performance solutions specialist Time Discussed With Above Provider: 23:20 Instructed by Provider To: Other - Reported findings of chest/thorax CTA - mediastinum. Discussed care of pt with [facility] at 2329 who accepts pt for transfer to the ED. Accepting physician is Dr. Carlos. - Critical Care Time Critical Care Time: 30-74 min Discharge - Sign-Out/Discharge Documenting (check all that apply): Discharge/Admit/Transfer - Transfer - Discharge Plan Condition: Stable Disposition: TRANS HIGHER LVL OF CARE FAC Referrals: No Primary Care Phys,NOPCP [Primary Care Provider] - - Billing Disposition and Condition Condition: STABLE Disposition: EMTALA The documentation as recorded by the Elizabeth de jesus Rebecca accurately reflects the service I personally performed and the decisions made by Iglesia milan Emmanuel.
[2017-08-22 00:02] VITALS: BP 125/72
--- NOTE | 2017-08-22 07:45 | RAD ---
INDICATION: Chest pain COMPARISON: CT chest, abdomen and pelvis dated May 06, 2016 TECHNIQUE: Axial source images were acquired following the administration of 63 mL Omnipaque [address] angiographic technique. Coronal and sagittal reconstructed images were constructed and reviewed. FINDINGS: There there are no filling defects in the pulmonary arteries to indicate acute pulmonary embolic disease. There is a moderate amount of air throughout the mediastinum extending up to the lower neck and left periclavicular tissue. There is no mediastinal, hilar, or axillary lymphadenopathy. There are no focal infiltrates or effusions. There are no pulmonary parenchymal masses. The heart is normal in size. There is no evidence of pericardial effusion. There is no evidence of aortic aneurysm or dissection. The visualized osseous structures appear normal. Postsurgical changes include surgical clips at the gastroesophageal junction and surgical clips in the right upper quadrant related to the patient's prior hepatectomy. IMPRESSION: 1. No CT of evidence of pulmonary embolism. 2. Moderate amount of mediastinal air. Out of consideration for the surgical clips at the gastroesophageal junction, the origin of the air is suspected to be the esophagus.
== END 2017-08-21 23:58 | disposition short-term general hospital (02) ==
LOC: ED 20:28
DX: R07.9 Chest pain, unspecified (principal); J98.2 Interstitial emphysema; C22.0 Liver cell carcinoma; R42 Dizziness and giddiness; R11.0 Nausea
CPT/HCPCS: 36415; 71275; 80053; 83605; 83880; 84484; 85025; 85610; 85730; 93005; 99285; Q9967

== ENCOUNTER 2017-10-14 16:45 | Emergency (ER) | payer OTHER ==
[2017-10-14] MEDS ORDERED: Iodixanol* (CONTRAST) 320 MG/ML 100 ML SDV IV ONE (20:45)
[2017-10-14] MEDS ORDERED: diPHENhydraMINE IV* 50 MG/ML 1 ml VIAL (BENADRYL) IV ONE (21:35)
[2017-10-14] MEDS ORDERED: methylPREDNISolone 125 MG* 2 ML VIAL IV ONE (21:35)
--- NOTE | 2017-10-14 21:45 | RAD ---
INDICATION: Hepatic metastasis. History of liver resection COMPARISON: CT abdomen pelvis May 06, 2016 TECHNIQUE: Axial source images were obtained from the hemidiaphragms to the symphysis pubis following administration of oral and intravenous contrast. 78 mL Visipaque 320 was utilized. Coronal and sagittal reconstructed images were acquired. Lung bases: The lung bases are clear. There are multiple surgical clips epigastric region Liver: There is right hepatic resection. There is a prominent left hepatic lobe. There is periportal edema. There is no focal hepatic mass. Gallbladder: The gallbladder is believed to be present. There is no CT evidence to suggest cholelithiasis. Spleen: There is splenomegaly, unchanged. Pancreas: There is no focal pancreatic mass or ductal dilatation. Adrenal glands: The left adrenal gland is normal. The right adrenal gland may have been resected.. Kidneys: The kidneys are normal in size and position. There are prompt nephrograms and there is prompt excretion bilaterally. There are no renal parenchymal masses. There is no evidence of nephrolithiasis. Adenopathy: There is no evidence of adenopathy by size criteria. Fluid collections: There are no free or localized fluid collections. Vessels:There are no significant atherosclerotic changes involving the aorta. There is no focal aneurysm. The iliac vessels are normal in caliber. The IVC appears normal. GI tract: There are no definitive abnormalities the visualized upper lower GI tract. There are fluid-filled loops of small bowel and there is colon in the right upper quadrant. The bowel loops fill the void from prior hepatic resection. Abdominal and soft tissues: The extraperitoneal abdominal and soft tissues appear normal.. Osseous structures: There are no acute osseous findings. Other: None IMPRESSION: 1. Right hepatic resection. No evidence of focal lesion in the hypertrophied left hepatic lobe. There is periportal edema 2. Splenomegaly, unchanged. 3. Multiple surgical clips epigastric region.
[2017-10-14] MEDS ORDERED: NS 0.9% 1000 ML* 1,000 ML IV ONE (21:47)
--- NOTE | 2017-10-14 22:24 | ED ---
Babak Madsen Natalie, scribed for Abelardo Jones MD on 10/14/17 at 2026 . Skin Complaint - HPI Summary HPI Summary: The patient is a 22 y/o M presenting to [facility] c/o jaundice symptoms of yellowed skin and eyes starting three days ago and worsening since. His symptoms started out with yellow eyes, which he came to the ED for, but the yellowing has since increased to all over his body. He is not experiencing any pain, but he reports that he is itchy and more lethargic than usual. 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 During this time, he had two resections of his liver with 70% removed the first time, and less than 5% removed the second time with an additionally larger mass resected from the region above his diaphragm. {t states his liver has since fully regrown, but is unsure if it's the normal size. He visits his oncologists every 3-6 months in [facility] for CT scans and MRIs to check on his progress. He has been unable to reach his primary doctor, but he was advised to get a CT or US scan done in the ED. - History of Current Complaint Chief Complaint: EDGeneral Stated Complaint: POSSIBLE JAUNDICE Hx Obtained From: Patient Onset/Duration: Started Days Ago, Still Present Skin Exposure Onset/Duration: Days Ago Timing: Lasting Days Onset Severity: Moderate Current Severity: Moderate Pain Intensity: 0 Pain Scale Used: 0-10 Numeric Skin Location: Diffuse Aggravating Symptom(s): Nothing Alleviating Symptom(s): Nothing - Additional Pertinent History Primary Care Physician: [id number] - Allergy/Home Medications Allergies/Adverse Reactions: Allergies Allergy/AdvReac Type Severity Reaction Status Date / Time No Known Allergies Allergy Verified 10/14/17 17:10 PMH/Surg Hx/FS Hx/Imm Hx Endocrine/Hematology History: Denies: Hx Diabetes - DOES TAKE METFORMIN - IS NOT A DIABETIC Cardiovascular History: Denies: Hx Hypertension, Hx Pacemaker/ICD GI History: Reports: Other GI Disorders - 70% of Liver removed due to CA History: Denies: Hx Dialysis, Hx Renal Disease Sensory History: Denies: Hx Contacts or Glasses, Hx Hearing Aid Opthamlomology History: Denies: Hx Contacts or Glasses Psychiatric History: Denies: Hx Eating Disorder, Hx Panic Disorder, Hx of Violent Episodes Against Others - Cancer History Cancer Type, Location and Year: Liver, 2014, 2016 Hx Chemotherapy: No Hx Radiation Therapy: No Hx Palliative Cancer Treatment: No - Surgical History Surgery Procedure, Year, and Place: LIVER RESECTION JUNE 2014;. SECOND LIVER RESECTION 09/2016 WITH MASS REMOVAL FROM AROUND LIVER AND NEAR ESOPHAGUS; - Immunization History Date of Tetanus Vaccine: utd Date of Influenza Vaccine: unk Infectious Disease History: No Infectious Disease History: Denies: Traveled Outside the US in Last 30 Days - Family History Known Family History: Negative: Cardiac Disease, Hypertension, Diabetes - Social History Alcohol Use: Rare Substance Use Type: Reports: Marijuana Substance Use Comment - Amount & Last Used: cannabis oil Smoking Status (MU): Never Smoked Tobacco Review of Systems Positive: Other - lethargic Positive: Other - jaundice-colored skin, itchy All Other Systems Reviewed And Are Negative: Yes Physical Exam - Summary Physical Exam Summary: Appearance: Icterus, Well-nourished Skin: Warm Eyes: Bilateral scleral icterus, moderate ENT: Normal Neck: Supple, nontender Respiratory: Clear to auscultation Cardiovascular: Regular rate, regular rhythm. Normal S1, S2. Abdomen: Soft, nontender in all regions Musculoskeletal: Normal, Strength/ROM Intact Neurological: Normal, A&Ox3 Psychiatric: Normal General: No acute distress Triage Information Reviewed: Yes Vital Signs On Initial Exam: Initial Vitals Temp Pulse Resp BP Pulse Ox 98.9 F 72 16 125/69 97 10/14/17 17:00 10/14/17 17:00 10/14/17 17:00 10/14/17 17:00 10/14/17 17:00 Vital Signs Reviewed: Yes Diagnostics - Vital Signs Vital Signs Temp Pulse Resp BP Pulse Ox 10/14/17 17:00 98.9 F 72 16 125/69 97 - Laboratory Lab Results: Lab Results 10/14/17 Range/Units 17:30 Magnesium 2.0 (1.9-2.7) mg/dL Troponin I 0.01 (<0.04) ng/mL Lipase 24 (11.0-82.0) U/L TSH 1.03 (0.34-5.60) mcIU/mL Salicylates < 2.50 (<30) mg/dL Lab Statement: Any lab studies that have been ordered have been reviewed, and results considered in the medical decision making process. - CT Abd CT CT Interpretation: No Acute Changes - 1. Right hepatic resection. No evidence of focal lesion in the hypertrophied left hepatic lobe. There is periportal edema 2. Splenomegaly, unchanged. 3. Multiple surgical clips epigastric region. ED physician has reviewed this report. CT Interpretation Completed By: Radiologist Course/Dx - Course Course Of Treatment: After receiving PO contrast Pt c/o nasal secretions and tingling in his throat, some skin lesions/hives seen on left axilla and right lateral trunk. Never had reaction to contrast in the past, IV solumedrol, IV Benadryl and IVF admisnitered. 02 sat remianed normal in RA. Pt asked for food as he ate last at around 130pm. CT abd - NO evidence of focal lesion in hypertrophied (no size mentioned) left hepatic lobe and no extraneous focal lesions. Pt to be oberserved in ED until his allergic reaction becomes under control and remains stable. Pt signed out to Dr Becerra for new LFT results - Diagnoses Provider Diagnoses: Primary fibrolamellar hepatocellular carcinoma of liver, Jaundice, hepatocellular Discharge - Sign-Out/Discharge Documenting (check all that apply): Sign-Out Patient Signing out patient TO: Jeanette Becerra - The pt will be sign-out to Dr. Becerra, awaiting observation of respiratory status because he appeared to have hives/ skin reactions to IV contrast. - Discharge Plan Referrals: [facility] - Ramu MORRIS [Primary Care Provider] - The documentation as recorded by the Babak de jesus Natalie accurately reflects the service I personally performed and the decisions made by me, Abelardo Jones MD.
[2017-10-14 23:07] LABS: ABS Basophils 0 10^3/ul (0-0.2); ABS Eosinophils 0.1 10^3/ul (0-0.6); ABS Lymphocytes 1.7 10^3/ul (1.0-4.8); ABS Monocytes 0.5 10^3/ul (0-0.8); ABS Nucleated RBC 0 10^3/ul; Eosinophil % 2.7 % (0-6); Hematocrit 42 % (42-52); Hemoglobin 14.2 g/dl (14.0-18.0); Lymphocyte % 32.5 % (25-47); Mean Corpuscular HGB Conc 34 g/dl (31-36); Mean Corpuscular Hemoglobin 29 pg (27-31); Mean Corpuscular Volume 85 fL (80-94); Mean Platelet Volume 10.2 um3 (7.4-10.4); Nucleated Red Blood Cells % 0.1; Platelet Count 193 10^3/ul (150-450); Red Blood Count 4.92 10^6/ul (4.00-5.40); Red Cell Distribution Width 19 % (10.5-15); White Blood Count 5.3 10^3/ul (3.5-10.8)
[2017-10-15 01:27] VITALS: BP 119/65
--- NOTE | 2017-10-15 03:37 | ED ---
I, Ne Marrero, scribed for Jeanette Becerra MD on 10/15/17 at 0051 . Progress - Progress Note Progress Note: SO from Dr. Jones pending observation for allergic reaction to IV contrast. 0105: At bedside. Pt is feeling better, has no complaints. Re-Evaluation - Re-Evaluation 1 Re-Evaluation Time: 01:05 Change: Improved Comment: Upon re-eval pt has no complaints and would like to be DC home. Course/Dx - Course Course Of Treatment: After receiving PO contrast Pt c/o nasal secretions and tingling in his throat, some skin lesions/hives seen on left axilla and right lateral trunk. Never had reaction to contrast in the past, IV solumedrol, IV Benadryl and IVF admisnitered. 02 sat remained normal in RA. Pt asked for food as he ate last at around 130pm. CT abd - NO evidence of focal lesion in hypertrophied (no size mentioned) left hepatic lobe and no extraneous focal lesions. Patient has an appointment with [facility] on Monday. . Pt to be oberserved in ED until his allergic reaction becomes under control and remains stable. Pt signed out to Dr Becerra for new LFT results. - Diagnoses Provider Diagnoses: Primary fibrolamellar hepatocellular carcinoma of liver, Jaundice, hepatocellular, Allergic reaction to contrast dye Discharge - Sign-Out/Discharge Documenting (check all that apply): Discharge/Admit/Transfer - D/C, Receiving Sign-Out Receiving patient FROM: Abelardo Jones - Pending observation - Discharge Plan Condition: Stable Disposition: HOME Patient Education Materials: Jaundice (ED), General Allergic Reaction (ED) Referrals: [facility] - Ramu MORRIS [Primary Care Provider] - Additional Instructions: Please return to the ED if you experience new or worsening symptoms. - Billing Disposition and Condition Condition: STABLE Disposition: Home The documentation as recorded by the Janes de jesus SooYoung accurately reflects the service I personally performed and the decisions made by me, Jeanette Becerra MD.
== END 2017-10-15 01:30 | disposition home or self-care (01) ==
LOC: ED 16:45
DX: C22.0 Liver cell carcinoma (principal); K72.90 Hepatic failure, unspecified without coma; R53.83 Other fatigue
CPT/HCPCS: 36415; 74160; 80053; 80329; 83690; 83735; 84443; 84484; 85025; 96374; 96375; 99285; G0480; J1200; J2930; Q9967

== ENCOUNTER 2018-06-04 08:59 | Emergency (ER) | payer OTHER ==
[2018-06-04] MEDS ORDERED: NS 0.9% 1000 ML** 1,000 ML IV ONE ×2 (09:26→12:02)
[2018-06-04] MEDS ORDERED: Ibuprofen TAB* 600 MG PO ONE (09:42)
[2018-06-04 09:50] LABS: ABS Basophils 0 10^3/ul (0-0.2); ABS Eosinophils 0 10^3/ul (0-0.6); ABS Monocytes 0.9 10^3/ul (0-0.8); ABS Neutrophils 9.6 10^3/ul (1.5-7.7); ABS Nucleated RBC 0 10^3/ul; Eosinophil % 0.1 %; Hematocrit 39 % (42-52); Lymphocyte % 8.8 %; Mean Corpuscular HGB Conc 34 g/dl (31-36); Mean Corpuscular Hemoglobin 28 pg (27-31); Mean Corpuscular Volume 82 fL (80-94); Mean Platelet Volume 8.8 fL (7.4-10.4); Nucleated Red Blood Cells % 0.1; Platelet Count 162 10^3/ul (150-450); Red Cell Distribution Width 16 % (10.5-15); White Blood Count 11.5 10^3/ul (3.5-10.8)
[2018-06-04 09:52] LABS: Influenza A Molecular NEGATIVE (Negative); Influenza B Molecular NEGATIVE (Negative)
[2018-06-04 10:09] LABS: ALT 79 U/L (7-52); AST 60 U/L (13-39); Albumin 4.2 g/dL (3.2-5.2); Albumin/Globulin Ratio 1.4 (1-3); Alkaline Phosphatase 245 U/L (34-104); Amylase 42 U/L (29-103); Anion Gap 8 mmol/L (2-11); BUN/Creatinine Ratio 17.8 (8-20); Blood Urea Nitrogen 16 mg/dL (6-24); C Reactive Protein 58.25 mg/L (<8.01); CO2 Carbon Dioxide 28 mmol/L (22-32); Calcium 9.5 mg/dL (8.6-10.3); Chloride 98 mmol/L (101-111); EGFR African American 125.4 (>60); EGFR Non-African American 103.7 (>60); Glucose 126 mg/dL (70-100); Potassium 4.2 mmol/L (3.5-5.0); Sodium 134 mmol/L (135-145); Total Protein 7.2 g/dL (6.4-8.9)
[2018-06-04] MEDS ORDERED: predniSONE TAB* 50 MG PO ONE (13:00)
--- NOTE | 2018-06-04 13:08 | ED ---
Abdominal Pain/Male - HPI Summary HPI Summary: Patient is a 23-year-old male who presents emergency department for abdominal pain and fever. Patient has history of hepatocarcinoma and follows with oncology at [facility]. Patient notes numerous liver resections. He states that he had a biliary drain placed 2 weeks ago by JOSE Britton. Patient states he has had drain capped and today he developed malaise, fever and worsening abdominal pain. Patient otherwise denies sore throat, sinus congestion, cough, vomiting, diarrhea. He is not currently on chemoradiation. Symptoms are moderate in severity. Movement makes symptoms worse. Nothing makes symptoms better. 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 Dr. Marcano is his oncologist at [place]. - History of Current Complaint Chief Complaint: EDAbdAmericoin Stated Complaint: ABD PAIN Time Seen by Provider: 06/04/18 09:07 Hx Obtained From: Patient Pain Intensity: 3 - Allergies/Home Medications Allergies/Adverse Reactions: Allergies Allergy/AdvReac Type Severity Reaction Status Date / Time Iodinated Contrast- Oral and Allergy Swelling Verified 06/04/18 09:06 IV Dye Of Face,Lips,& Throat Home Medications: Home Medications FLUoxetine CAP* [PROzac CAP*] 10 mg PO DAILY 06/04/18 [History Confirmed ] Melatonin 5 mg SL QPM PRN 06/04/18 [History Confirmed 06/04/18] PMH/Surg Hx/FS Hx/Imm Hx Previously Healthy: Yes Endocrine/Hematology History: Denies: Hx Diabetes - DOES TAKE METFORMIN - IS NOT A DIABETIC Cardiovascular History: Denies: Hx Hypertension, Hx Pacemaker/ICD GI History: Reports: Other GI Disorders - 70% of Liver removed due to CA History: Denies: Hx Dialysis, Hx Renal Disease Sensory History: Denies: Hx Contacts or Glasses, Hx Hearing Aid Opthamlomology History: Denies: Hx Contacts or Glasses Psychiatric History: Denies: Hx Eating Disorder, Hx Panic Disorder, Hx of Violent Episodes Against Others - Cancer History Cancer Type, Location and Year: Liver, 2014, 2016 Hx Chemotherapy: No Hx Radiation Therapy: No Hx Palliative Cancer Treatment: No - Surgical History Surgery Procedure, Year, and Place: LIVER RESECTION JUNE 2014;. SECOND LIVER RESECTION 09/2016 WITH MASS REMOVAL FROM AROUND LIVER AND NEAR ESOPHAGUS; - Immunization History Date of Tetanus Vaccine: utd Date of Influenza Vaccine: unk Infectious Disease History: No Infectious Disease History: Denies: Traveled Outside the [place] in Last 30 Days - Family History Known Family History: Negative: Cardiac Disease, Hypertension, Diabetes - Social History Occupation: Student Lives: Dormitory/Roommates Alcohol Use: Rare Substance Use Type: Reports: Marijuana Substance Use Comment - Amount & Last Used: cannabis oil Smoking Status (MU): Never Smoked Tobacco Review of Systems Positive: Fever, Chills Eyes: Negative ENT: Negative Cardiovascular: Negative Negative: Chest Pain Respiratory: Negative Negative: Shortness Of Breath Positive: Abdominal Pain. Negative: Vomiting, Diarrhea, Nausea Genitourinary: Negative Positive: Myalgia Skin: Negative Positive: Headache All Other Systems Reviewed And Are Negative: Yes Physical Exam Triage Information Reviewed: Yes Vital Signs On Initial Exam: Initial Vitals Temp Pulse Resp BP Pulse Ox 99.6 F 100 16 127/75 97 06/04/18 09:01 06/04/18 09:01 06/04/18 09:01 06/04/18 09:01 06/04/18 09:01 Vital Signs Reviewed: Yes Appearance: Positive: Ill-Appearing - Pt. lying in bed in NAD. Appears chronically ill. Friend present. Skin: Positive: Warm, Dry Head/Face: Positive: Normal Head/Face Inspection Eyes: Positive: Normal, EOMI, Conjunctiva Clear ENT: Positive: Pharynx normal, TMs normal Neck: Positive: Supple, Nontender. Negative: Nuchal Rigidity Respiratory/Lung Sounds: Positive: Clear to Auscultation, Breath Sounds Present Cardiovascular: Positive: Normal, RRR Abdomen Description: Positive: Other: - Large healed RUQ surgical scar. Billiary drainage to the LUQ. There is very small surrounding erythema. No induration or fluctuance. Abd. is diffusely tender, mostly to the RUQ. Musculoskeletal: Positive: Normal, Strength/ROM Intact Neurological: Positive: Normal, CN Intact II-III Psychiatric: Positive: Affect/Mood Appropriate Diagnostics - Vital Signs Vital Signs Temp Pulse Resp BP Pulse Ox 06/04/18 12:42 66 114/65 98 06/04/18 12:12 75 99/58 98 06/04/18 12:00 70 98 06/04/18 11:42 72 114/73 97 06/04/18 11:12 76 115/75 97 06/04/18 11:00 85 97 06/04/18 10:42 83 108/67 98 06/04/18 10:12 79 95/50 98 06/04/18 10:00 86 100 06/04/18 09:54 101 F 06/04/18 09:42 92 115/74 99 06/04/18 09:12 95 132/75 99 06/04/18 09:01 99.6 F 100 16 127/75 97 - Laboratory Lab Results: Lab Results 06/04/18 06/04/18 06/04/18 Range/Units 09:38 09:38 09:38 WBC 11.5 H (3.5-10.8) 10^3/ul RBC 4.70 (4.00-5.40) 10^6/ul Hgb 13.0 L (14.0-18.0) g/dl Hct 39 L (42-52) % MCV 82 (80-94) fL MCH 28 (27-31) pg MCHC 34 (31-36) g/dl RDW 16 H (10.5-15) % Plt Count 162 (150-450) 10^3/ul MPV 8.8 (7.4-10.4) fL Neut % (Auto) 83.0 % Lymph % (Auto) 8.8 % Ripley % (Auto) 7.8 % Eos % (Auto) 0.1 % Baso % (Auto) 0.3 % Absolute Neuts (auto) 9.6 H (1.5-7.7) 10^3/ul Absolute Lymphs (auto) 1.0 (1.0-4.8) 10^3/ul Absolute Monos (auto) 0.9 H (0-0.8) 10^3/ul Absolute Eos (auto) 0 (0-0.6) 10^3/ul Absolute Basos (auto) 0 (0-0.2) 10^3/ul Absolute Nucleated RBC 0 10^3/ul Nucleated RBC % 0.1 Sodium 134 L (135-145) mmol/L Potassium 4.2 (3.5-5.0) mmol/L Chloride 98 L (101-111) mmol/L Carbon Dioxide 28 (22-32) mmol/L Anion Gap 8 (2-11) mmol/L BUN 16 (6-24) mg/dL Creatinine 0.90 (0.67-1.17) mg/dL Est GFR ( Amer) 125.4 (>60) Est GFR (Non-Af Amer) 103.7 (>60) BUN/Creatinine Ratio 17.8 (8-20) Glucose 126 H (70-100) mg/dL Lactic Acid 1.6 (0.5-2.0) mmol/L Calcium 9.5 (8.6-10.3) mg/dL Total Bilirubin 2.70 H (0.2-1.0) mg/dL AST 60 H (13-39) U/L ALT 79 H (7-52) U/L Alkaline Phosphatase 245 H (34-104) U/L C-Reactive Protein 58.25 H (<8.01) mg/L Total Protein 7.2 (6.4-8.9) g/dL Albumin 4.2 (3.2-5.2) g/dL Globulin 3.0 (2-4) g/dL Albumin/Globulin Ratio 1.4 (1-3) Amylase 42 (29-103) U/L Lipase < 10 L (11.0-82.0) U/L Influenza A (Rapid) (Negative) Influenza B (Rapid) (Negative) 06/04/18 Range/Units 09:41 WBC (3.5-10.8) 10^3/ul RBC (4.00-5.40) 10^6/ul Hgb (14.0-18.0) g/dl Hct (42-52) % MCV (80-94) fL MCH (27-31) pg MCHC (31-36) g/dl RDW (10.5-15) % Plt Count (150-450) 10^3/ul MPV (7.4-10.4) fL Neut % (Auto) % Lymph % (Auto) % Ripley % (Auto) % Eos % (Auto) % Baso % (Auto) % Absolute Neuts (auto) (1.5-7.7) 10^3/ul Absolute Lymphs (auto) (1.0-4.8) 10^3/ul Absolute Monos (auto) (0-0.8) 10^3/ul Absolute Eos (auto) (0-0.6) 10^3/ul Absolute Basos (auto) (0-0.2) 10^3/ul Absolute Nucleated RBC 10^3/ul Nucleated RBC % Sodium (135-145) mmol/L Potassium (3.5-5.0) mmol/L Chloride (101-111) mmol/L Carbon Dioxide (22-32) mmol/L Anion Gap (2-11) mmol/L BUN (6-24) mg/dL Creatinine (0.67-1.17) mg/dL Est GFR ( Amer) (>60) Est GFR (Non-Af Amer) (>60) BUN/Creatinine Ratio (8-20) Glucose (70-100) mg/dL Lactic Acid (0.5-2.0) mmol/L Calcium (8.6-10.3) mg/dL Total Bilirubin (0.2-1.0) mg/dL AST (13-39) U/L ALT (7-52) U/L Alkaline Phosphatase (34-104) U/L C-Reactive Protein (<8.01) mg/L Total Protein (6.4-8.9) g/dL Albumin (3.2-5.2) g/dL Globulin (2-4) g/dL Albumin/Globulin Ratio (1-3) Amylase (29-103) U/L Lipase (11.0-82.0) U/L Influenza A (Rapid) Negative (Negative) Influenza B (Rapid) Negative (Negative) Result Diagrams: 06/04/18 09:38 06/04/18 09:38 Lab Statement: Any lab studies that have been ordered have been reviewed, and results considered in the medical decision making process. Abdominal Pain Fem Course/Dx - Course Course Of Treatment: Pt. presenting with increased abd. pain and fever after recent biliary drain placement. Temp. 101F. Mildly tachycardic. Stable BP. Pt. started on NSS and labs obtained. CBC shows mild leukoctytosis of 11.5. CMP shows mild elevation in LFTs and bili which are at pt.'s baseline. CRP elevated. I spoke with nurse at Dr. Moya's office who is familar with pt. Dr. Moya is on vacation but in contact with her about case. She states that it is not uncommon for a fever or pain is biliary drain is cap. She would like cap taken of and bag placed. She states this should help improve pain. She also notes that Dr. Moya would like a CT with contrast for further evaluation. Pt. has a hx of urticaria from contrast dye and was premedicated for his last CT scan. [facility] [place] policy is 13 hours of premedication. I did touch base with surgery for possible evaluation of pt., Dr. Rodriguez, but he does not feel his evaluation would be beneficial. Pt. examined by Dr. Tuttle and plan will be to transfer pt. to [facility] for further evaluation and care. 1317: Transfer center made aware of transfer to [facility]. 1430: Pt.'s physician initially rounding on pt.'s and to call us back. 1535: We were informed that pt.'s physician was consulting with oncologist about case and if they wanted pt. transferred--they are to call us back with decision. 1640: Xavier dean contacting transfer center again for update. Pt. started on Cipro and flagyl. VS stable. 1640: Xavier dean contacted [facility] again and spoke with Dr. Quinones supposedly they are still waiting to hear back from oncologist. 1730: I spoke with Dr. Leonard attending at [place]. She agrees to accept pt. in transfer for higher level of care. - Diagnoses Differential Diagnosis/HQI/PQRI: Appendicitis, Bowel Obstruction, Constipation, Diverticulitis, Gall Bladder Disease, Hepatitis Provider Diagnoses: Abdominal pain Discharge - Sign-Out/Discharge Documenting (check all that apply): Patient Departure - Discharge Plan Condition: Stable Disposition: TRANS HIGHER LVL OF CARE FAC Referrals: [facility] - Ramu MORRIS [Primary Care Provider] - - Billing Disposition and Condition Condition: STABLE Disposition: Trans Higher Lvl of Care Fac
--- NOTE | 2018-06-04 13:09 | ED ---
Progress - Progress Note Progress Note: Evaluated the patient to request Amanuel OLSEN. The patient is 2 weeks status post cholecystostomy tube placement at [facility]. He presents with fever and increasing left upper quadrant and epigastric pain. He has mild tenderness on exam, the bile is normal- appearing in the drain tube. He started draining it today in the emergency department, has never drained before. , Getting factor for him is that he has known hives with IV contrast, and a contrast examination was recommended by his surgeons at [facility]. Given his fever, possible postoperative complications, and lack of tertiary care surgical backup, who recommended transfer back to [facility]. We will premedicate the patient here to effect timely imaging. Course/Dx - Course Course Of Treatment: Surgery was consulted and recommended transfer to a higher level of care. - Diagnoses Provider Diagnoses: Abdominal pain, Bile leak, Acute cholangitis Discharge - Sign-Out/Discharge Documenting (check all that apply): Patient Departure - Discharge Plan Condition: Stable Disposition: TRANS HIGHER LVL OF CARE FAC Referrals: [facility] - Ramu MORRIS [Primary Care Provider] - - Billing Disposition and Condition Condition: STABLE Disposition: Trans Higher Lvl of Care Fac - Attestation Statements Document Initiated by Juani: No
[2018-06-04] MEDS ORDERED: Ciprofloxacin 400MG IVPREMIX(* 400 MG/200 ML BAG IVPB ONE (16:36)
[2018-06-04] MEDS ORDERED: metroNIDAZOLE IV 500 MG/100ML* 500 MG/100 ML BAG IVPB ONE (16:36)
[2018-06-04] MEDS ORDERED: FLUoxetine CAP* 20 MG PO ONE (17:55)
[2018-06-04 20:32] VITALS: BP 90/47
== END 2018-06-04 20:36 | disposition short-term general hospital (02) ==
LOC: ED 08:59
DX: K91.89 Other postprocedural complications and disorders of digestive system (principal); K83.09 Other cholangitis; R10.11 Right upper quadrant pain; R10.13 Epigastric pain; R50.9 Fever, unspecified; Z85.05 Personal history of malignant neoplasm of liver; Z91.041 Radiographic dye allergy status
CPT/HCPCS: 36415; 80053; 82150; 83605; 83690; 85025; 86140; 96365; 96366; 99285; A9270-GY; J0744; J3490; J7512

== ENCOUNTER 2018-08-20 16:04 | Observation (INO) | payer OTHER ==
[2018-08-20] MEDS ORDERED: Piperacillin/Tazobac ADVAN(*) 3.375 GM in NS 0.9% 100 ML* 100 ML IVPB ONE (16:53)
[2018-08-20] MEDS ORDERED: NS 0.9% 1000 ML** 1,000 ML IV ONE (16:54)
--- NOTE | 2018-08-20 17:01 | ED ---
Complex/Multi-Sys Presentation - HPI Summary HPI Summary: Patient is a 23 y/o M presenting to ED with complaints of fevers, chills, fatigue and nausea for the past three days. He has Hx of hepatocarcinoma and reports that he had abdominal reconstruction, liver resection June 07, [address] [facility], done by Dr. Durbin. He states that his surgical team can be reached by calling either [phone] (covering PA number) or (Dr. Durbin's main PA number). He is followed at [facility] for his liver cancer by Dr. Marcano. Patient reports PMHx of sepsis, bacteremia. Patient's temperature is reported to have been running between 100-102 F these past few days. He has a biliary drain in place that is reported to be working well. Patient has been having some abdominal pain as well , but he notes none at present and describes this abdominal pain as chronic. Cough, rhinorrhea, sore throat, congestion are denied. Dysuria is denied as well. He notes that he typically gets treated with Zosyn when he comes to ED for possible infection. While patient notes chronic abdominal pain in the room, on triage, pain is denied. Nothing is noted to aggravate/alleviate Sx. Home medications and allergies are reviewed. - History Of Current Complaint Chief Complaint: EDFluSymptoms Time Seen by Provider: 08/20/18 16:41 Hx Obtained From: Patient Onset/Duration: Lasting Days - three, Still Present Timing: Constant, Days - three Severity Currently: Mild - some abdominal pain, chronic, is noted at present, no pain reported on triage Location: Pain At: - abdomen Aggravating Factor(s): nothing Alleviating Factor(s): nothing Associated Signs And Symptoms: Positive: Nausea, Abdominal Pain, Fever, Other - POSITIVE - CHILLS, FATIGUE; NEGATIVE - RHINORRHEA, SORE THROAT, NASAL CONGESTION. Negative: Cough, Dysuria - Allergies/Home Medications Allergies/Adverse Reactions: Allergies Allergy/AdvReac Type Severity Reaction Status Date / Time Iodinated Contrast- Oral and Allergy Swelling Verified 08/20/18 16:05 IV Dye Of Face,Lips,& Throat Home Medications: Home Medications Apixaban* [Eliquis*] 5 mg PO DAILY 08/20/18 [History Confirmed 08/20/18] Ondansetron ODT TAB* [Zofran 4 MG Odt TAB*] 4 mg PO Q6H PRN 08/20/18 [History Confirmed 08/20/18] Ursodiol CAP* [Actigall CAP 300 MG*] 300 mg PO BID 08/20/18 [History Confirmed 08/20/18] traMADol TAB* [Ultram*] 50 mg PO Q6HR PRN 08/20/18 [History Confirmed 08/20/18] PMH/Surg Hx/FS Hx/Imm Hx Endocrine/Hematology History: Denies: Hx Diabetes - DOES TAKE METFORMIN - IS NOT A DIABETIC Cardiovascular History: Denies: Hx Hypertension, Hx Pacemaker/ICD GI History: Reports: Other GI Disorders - 70% of Liver removed due to CA History: Denies: Hx Dialysis, Hx Renal Disease Sensory History: Denies: Hx Contacts or Glasses, Hx Hearing Aid Opthamlomology History: Denies: Hx Contacts or Glasses Psychiatric History: Denies: Hx Eating Disorder, Hx Panic Disorder, Hx of Violent Episodes Against Others - Cancer History Cancer Type, Location and Year: Liver, 2014, 2016 Hx Chemotherapy: No Hx Radiation Therapy: No Hx Palliative Cancer Treatment: No - Surgical History Surgery Procedure, Year, and Place: LIVER RESECTION JUNE 2014;. SECOND LIVER RESECTION 09/2016 WITH MASS REMOVAL FROM AROUND LIVER AND NEAR ESOPHAGUS; - Immunization History Date of Tetanus Vaccine: utd Date of Influenza Vaccine: unk Infectious Disease History: No Infectious Disease History: Denies: Traveled Outside the [place] in Last 30 Days - Family History Known Family History: Negative: Cardiac Disease, Hypertension, Diabetes - Social History Alcohol Use: Rare Substance Use Type: Reports: Marijuana Substance Use Comment - Amount & Last Used: cannabis oil Smoking Status (MU): Never Smoked Tobacco Review of Systems Positive: Fever, Chills, Fatigue ENT: Other - NEGATIVE - NASAL CONGESTION Negative: Sore Throat, Nasal Discharge Negative: Cough Positive: Abdominal Pain - since resolved and chronic , Nausea Negative: dysuria All Other Systems Reviewed And Are Negative: Yes Physical Exam - Summary Physical Exam Summary: VITAL SIGNS: Reviewed. GENERAL: Patient is a well-developed, thin, pale-appearing male who is lying comfortable in the stretcher. Patient is not in any acute respiratory distress nor pain distress. HEAD AND FACE: No signs of trauma. No ecchymosis, hematomas or skull depressions. No sinus tenderness. EYES: PERRLA, EOMI x 2, No injected conjunctiva, no nystagmus. EARS: Hearing grossly intact. Ear canals and tympanic membranes are within normal limits. MOUTH: Oropharynx within normal limits. NECK: Supple, trachea is midline, no adenopathy, no JVD, no carotid bruit, no c- spine tenderness, neck with full ROM. CHEST: Symmetric, no tenderness at palpation LUNGS: Clear to auscultation bilaterally. No wheezing or crackles. CVS: Regular rate and rhythm, S1 and S2 present, no murmurs or gallops appreciated. ABDOMEN: Soft, non-tender. No signs of distention. No rebound no guarding, and no masses palpated. Bowel sounds are normal. Patient has a biliary drain that is filled with biliary fluid. EXTREMITIES: FROM in all major joints, no edema, no cyanosis or clubbing. NEURO: Alert and oriented x 3. No acute neurological deficits. Speech is normal and follows commands. SKIN: Dry and warm; patient has a large abdominal surgical scar with no signs of infection. Triage Information Reviewed: Yes Vital Signs On Initial Exam: Initial Vitals Temp Pulse Resp BP Pulse Ox 99.2 F 105 18 121/72 98 08/20/18 16:06 08/20/18 16:06 08/20/18 16:06 08/20/18 16:06 08/20/18 16:06 Vital Signs Reviewed: Yes Diagnostics - Vital Signs Vital Signs Temp Pulse Resp BP Pulse Ox 08/20/18 16:06 99.2 F 105 18 121/72 98 - Laboratory Result Diagrams: 08/20/18 17:15 08/20/18 17:15 Lab Statement: Any lab studies that have been ordered have been reviewed, and results considered in the medical decision making process. - Radiology chest x-ray Radiology Interpretation Completed By: Radiologist Summary of Radiographic Findings: IMPRESSION: #. Small dependent RIGHT pleural effusion and proportional associated RIGHT basilar. atelectasis new compared with the prior exam. THIS REPORT WAS REVIEWED BY DR. LONG. - EKG 1708 Cardiac Rate: NL - RATE OF 88 BPM EKG Rhythm: Sinus Rhythm EKG Comparison: No Significant Change - similar to previous EKG taken 08/21/17 Summary of EKG Findings: EKG showed NSR with 88 BPM, no ST elevation, similar to previous EKG taken 08/21/17 Complex Multi-Symp Course/Dx Assessment/Plan: This patient is a 23-year-old male who presents to the emergency room with chief complaint of having fevers, body aches and weakness. He has history of liver cancer is status post surgery and he has a biliary drainage. Patient reports that the when he gets this type of symptoms with fever body aches and weakness he usually gets an infection and then goes to the ER and is treated with Zosyn. Therefore well send blood cultures and we started Zosyn. Blood work shows an slight anemia with a hemoglobin 8.8, hct 28 , WBC 5.9 and platelets 170. INR is at 2.01, APTT 39.2, fibrinogen is 461.6. ESR is at 35, glucose of 106, AST is 42, alkaline phosphatase 461, and CRP is 99.9. Influenza A and B is negative. Chest x-ray impression: Small depending right pleural effusion and proportional associated right basilar atelectasis is new compared with prior exam. I discussed the case with Dr. Fan covering for Dr. Dubrin from [facility] and he recommends for the patient to be admitted either at [facility] for transfer the patient to [facility] if needed. Discussed the case with Dr. Sahu from the hospitalist services and she agrees to admit the patient to his services at [facility]. If any problems of course she will contact Dr. Fan. Patient is hemodynamically stable alert and oriented 3. - Diagnoses Provider Diagnoses: Fever, Anemia - Physician Notifications Discussed Care Of Patient With: Amber Sahu Time Discussed With Above Provider: 19:53 Instructed by Provider To: Other - 1947 - Dr. Serjio Fan, who is covering for Dr. Durbin recommends to attempt to have hospitalist admit the patient to [facility]. If the hospitalist does not accept, the patient should be transferred. 1952 - Patient's case was discussed with Dr. Sahu, Dr. Sahu accepts for admission. Discharge - Sign-Out/Discharge Documenting (check all that apply): Patient Departure - admit Patient Received Moderate/Deep Sedation with Procedure: No - Discharge Plan Condition: Good Disposition: ADMITTED TO [facility] Referrals: No Primary Care Phys,NOPCP [Primary Care Provider] - - Billing Disposition and Condition Condition: GOOD Disposition: Admitted to [facility] - Attestation Statements Document Initiated by Scribe: Yes Documenting Scribe: BRIAN GOODWIN Provider For Whom Scribe is Documenting (Include Credential): ELBERT LONG MD Scribe Attestation: I, BRIAN GOODWIN, scribed for ELBERT LONG MD on 08/20/18 at 2116. Scribe Documentation Reviewed: Yes Provider Attestation: The documentation as recorded by the BRIAN de jesus accurately reflects the service I personally performed and the decisions made by me, ELBERT LONG MD Status of Scribe Document: Viewed
[2018-08-20 17:37] LABS: Hematocrit 28 % (36-46); Hemoglobin 8.8 g/dL (14.0-18.0); Mean Corpuscular HGB Conc 32 g/dL (31-36); Mean Corpuscular Hemoglobin 22 pg (27-31); Mean Corpuscular Volume 70 fL (80-94); Mean Platelet Volume 7.7 fL (7.4-10.4); Platelet Count 170 10^3/uL (150-450); Red Blood Count 3.96 10^6 /uL (4.18-5.48); Red Cell Distribution Width 20 % (10.5-15); White Blood Count 5.9 10^3/uL (3.5-10.8)
[2018-08-20 17:42] LABS: Albumin/Globulin Ratio 1.3 (1-3); BUN/Creatinine Ratio 13.2 (8-20); C Reactive Protein 99.98 mg/L (<8.01); Calcium 8.9 mg/dL (8.6-10.3); EGFR African American 152.5 (>60); Globulin 3.1 g/dL (2-4); Potassium 4.3 mmol/L (3.5-5.0); Total Bilirubin 0.9 mg/dL (0.2-1.0); Total Protein 7.1 g/dL (6.4-8.9)
[2018-08-20 18:06] LABS: Activated Partial Thrombo Time 39.2 seconds (26.0-36.3); Fibrinogen 461.6 mg/dL (110.8-404.3); INR 2.01 (0.82-1.09)
[2018-08-20 18:22] LABS: ABS Basophils 0 10^3/ul (0-0.2); ABS Eosinophils 0.1 10^3/ul (0-0.6); ABS Monocytes 0.5 10^3/ul (0-0.8); ABS Neutrophils 4.3 10^3/ul (1.5-7.7); ABS Nucleated RBC 0 10^3/ul; Eosinophil % 1.2 %; Lymphocyte % 16.7 %; Nucleated Red Blood Cells % 0
[2018-08-20 18:23] LABS: Microcytosis 1+
[2018-08-20 18:38] LABS: Influenza A Molecular NEGATIVE (Negative); Influenza B Molecular NEGATIVE (Negative)
[2018-08-20 19:20] LABS: Erythrocyte Sed Rate 35 mm/Hr (0-14)
[2018-08-20] MEDS ORDERED: traMADol TAB* 50 MG PO PRN (20:59)
[2018-08-20] MEDS ORDERED: Ondansetron INJ* 2 MG/ML VIAL IV PRN (20:59)
[2018-08-20] MEDS ORDERED: NS 0.9% 1000 ML** 1,000 ML IV SCH (21:00)
[2018-08-20] MEDS ORDERED: Zosyn per Pharmacy* NOTE FOLLOW UP SCH (21:00)
[2018-08-20] MEDS: Ursodiol CAP* 300 MG PO SCH (22:11)
[2018-08-20] MEDS: ZOSYN 3.375 GM Q8H per EXTENDED INFUSION IVPB SCH ×2 (22:28)
[2018-08-20] MEDS: Melatonin 3 MG TAB PO PRN (23:31)
[2018-08-20] MEDS: Acetaminophen TAB* 325 MG PO PRN (23:31)
--- NOTE | 2018-08-20 23:54 | HP ---
HISTORY OF PRESENT ILLNESS: DATE OF ADMISSION: 08/20/18 CHIEF COMPLAINT: Fevers. PRIMARY CARE PROVIDER: [facility]. TRANSIT PLANNING DIRECTOR: Flores Echevarria, the patient's mother. CODE STATUS: Full. SOURCE OF INFORMATION: HPI is obtained from patient who is an excellent historian. HISTORY OF PRESENT ILLNESS: This is a 23-year-old male who was diagnosed with hepatocellular carcinoma fibrolamellar subtype in 2014, treated surgically with a total of 4 resections, most recently in May 2018 with complications of abscess, biliary tract obstruction status post biliary drain placement and bacteremia. He follows with Dr. Jay Durbin at [facility] as a surgeon as well as his cancer treatment team at the [facility]. He presents to the emergency room tonight febrile, starting over the last 2 days. He reports he was otherwise in his usual state of health recovering from his most surgery and about 2 to 3 days ago started having intermittent fever, chills, nausea and headache. He started taking Tylenol around the clock, hoping that it was just the flu, although his symptoms persisted and had measured fevers at home to 101 and 101.7 roughly every 6 hours at the end of running out of Tylenol. He spoke to his surgical team in [place] who requested that he come to the emergency room and get checked out. He has no other localizing signs and symptoms. No cough. No shortness of breath. No real myalgias. No sick contacts. No dysuria, hematuria. No changes other than recent change in medication. He was on prophylactic Lovenox in the setting of a known Dacron graft and was changed to Eliquis on Monday, so 2 days ago, but his fevers preceded that. He does note that he has had slightly less output from his biliary drain compared to when it was first placed, though he reports still adequate output without any change in color. He reports though when flushing 2 times in the last 48 hours, he has had some bloody bile and was a little bit more tender. As noted, his regular surgeon is Dr. Durbin. Covering for him this evening was Dr. Serjio Fan, also a transplant/liver surgeon cell phone [phone] who was contacted and recommended that the patient be admitted with culture data drawn to determine if this was a recurrence of known prior Klebsiella bacteremia. He instructed to hold on imaging at this time. The patient is actually scheduled for an ultrasound in [facility], although if he remains in the hospital over the next 48 hours, we may be able to arrange for additional imaging pending on clinical development. They did request that we touch base with him throughout the stay of his hospitalization. EMERGENCY ROOM COURSE: Temperature on arrival was 99.2, last Tylenol was 3 hours ago, heart rate is 105, respiratory rate is 18, 98% on room air, blood pressure is 121/72. Chest x-ray was done, which shows no active cardiopulmonary disease and EKG was done which shows normal sinus rhythm. Blood cultures were drawn, flu test was negative, and other than mild tenderness to palpation he has no other localizing signs and symptoms of infection. He was given Zosyn per instructions from his team in [place] given his frequent Klebsiella bacteremia in the past and the hospitalist team was asked to evaluate and admit this patient. PAST MEDICAL HISTORY: HCC fibrolamellar subtype, status post 4 resections complicated by abscess and bacteremia, depression. PAST SURGICAL HISTORY: Status post 4 resections, biliary drain placed, Dacron graft in place. MEDICATIONS: 1. Melatonin 5 mg sublingual q.p.m. 2. Ondansetron 4 mg p.o. q.6 hours. 3. Apixaban 5 mg p.o. daily. 4. Tramadol 50 mg p.o. q.6 hours p.r.n. 5. Ursodiol 300 mg p.o. b.i.d. ALLERGIES: To CONTRAST. FAMILY HISTORY: He says both parents are healthy and well and no history of cancers in the family. SOCIAL HISTORY: He is originally from [place]. 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 Lifetime nontobacco, nonalcohol, or nonillicit user. REVIEW OF SYSTEMS: Constitutional: He does endorse fevers and chills. No malaise. HEENT: Endorses headaches with fever, but otherwise without one. No vision changes. No sore throat. No difficulty swallowing. Cardiovascular: Negative for chest pain, palpations, or orthopnea. Respiratory: Negative for shortness of breath, cough, pleuritic chest pain. GI: Positive for vomiting and negative for vomiting or diarrhea. Positive for abdominal pain right lower quadrant consistent with prior. : Negative for dysuria, hematuria. Musculoskeletal: Negative for myalgias, arthralgias or weakness. Skin: Negative for rashes or lesions. Neurologic: Negative for focal weakness or numbness. Psychiatric: Negative for anxiety or depression. Endocrine: Negative for polyuria, polydipsia. Heme and lymph: Negative for bruising, bleeding or lymphadenopathy. PHYSICAL EXAMINATION GENERAL APPEARANCE: This is a very well-appearing pleasant young man, sitting up in ED stretcher in no acute distress. He is accompanied by a close friend of his from school. A and O x4. VITAL SIGNS: At the time of physical exam, temperature 100.5, pulse rate 93, oxygen 97% and blood pressure 126/74. HEENT: Pupils are equal and reactive. Extraocular muscles intact. Sclerae are anicteric. He has moist mucous membranes with no lesions and oral mucosa. NECK: Supple. No supraclavicular or cervical lymphadenopathy. LUNGS: Clear to auscultation bilaterally. CARDIAC: Regular rate and rhythm with no murmurs, rubs, or gallops. ABDOMEN: He has a large Y-shaped incision extending over the entirety of the abdomen appearing clean, dry, intact, no erythema or purulence. He also has a biliary drain exiting epigastric draining 100 to 125 cc of biliary fluid in the bag and the area looks clean, dry, intact at exit site of biliary drain as well. He has no distention, does have significant tenderness to palpation in right lower quadrant and minor tenderness to palpation in left upper quadrant, which he reports is not particularly out of baseline, although possibly slightly more tenderness to palpation in right lower quadrant than usual. He has normoactive bowel sounds. No guarding or rebound. MUSCULOSKELETAL: He moves all 4 extremities spontaneously. EXTREMITIES: No pedal edema. 2+ palpable pulses in bilateral feet. NEUROLOGIC: Cranial nerves II through XII intact. He has no focal deficits. A and O x4. LABS AND STUDIES: CBC shows white blood cell count of 5.9, hemoglobin 8.8, hematocrit 28, platelet count 170,000. CMP; sodium 138, potassium 4.3, chloride 102, carbon dioxide 32, creatinine 0.76, glucose 106, AST 42, ALT 51, alkaline phosphatase is 461. CRP is elevated at 99.8, lactic acid 0.8. Imaging included a chest x-ray which shows no active cardiopulmonary disease and EKG which shows normal sinus rhythm. Imaging and labs reviewed by myself. 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 In discussion with his surgical team from [place], they asked the patient be admitted to the hospital and cultures be drawn and that we communicate with them daily on his updates and if any complications that we arrange for transfer to [place]. 1. Fever. As above, the leading diagnosis is bacteremia from abdominal source he will be covered empirically from Zosyn with known history of Klebsiella bacteremia. We will also put him on around-the- clock Tylenol for symptomatic treatment and offer Zofran for nausea. 2. Hepatocellular carcinoma. He is status post resection, he is pain controlled with tramadol as per HPI. Please touch base with Dr. Fan and the General [place] team with Dr. Durbin as his leading surgeon daily on giving updates for this patient. Furthermore, he may need to be rescheduled for imaging that was done in the past. 3. Depression. No acute or active issues. 4. DVT prophylaxis. The patient is currently on prophylactic Eliquis given he has presence of a Dacron graft. Diet is unrestricted. 5. Disposition. Stable for admission to [address] [place] [address]. 6. Code status is full. TIME SPENT: Thirty five minutes were spent in the planning of this H and P with over half of that directly at the bedside of the patient providing direct patient care. The patient and his friend were educated on his admission, plan of care, and they understand and have no further questions. [id number]/[facility] #: [id number] JOSÉ MIGUEL
[2018-08-21] MEDS ORDERED: Piperacillin/Tazobac ADVAN(*) 3.375 GM in NS 0.9% 100 ML* 100 ML IVPB ONE (05:00)
[2018-08-21] MEDS: ZOSYN 3.375 GM Q8H per EXTENDED INFUSION IVPB SCH ×6 (05:48→21:54)
[2018-08-21 06:29] LABS: ABS Basophils 0 10^3/ul (0-0.2); ABS Eosinophils 0.1 10^3/ul (0-0.6); ABS Lymphocytes 1.2 10^3/ul (1.0-4.8); ABS Monocytes 0.4 10^3/ul (0-0.8); ABS Neutrophils 3.1 10^3/ul (1.5-7.7); ABS Nucleated RBC 0 10^3/ul; Hematocrit 24 % (36-46); Hemoglobin 7.5 g/dL (14.0-18.0); Lymphocyte % 25.9 %; Mean Corpuscular HGB Conc 31 g/dL (31-36); Mean Corpuscular Hemoglobin 22 pg (27-31); Mean Corpuscular Volume 70 fL (80-94); Mean Platelet Volume 8.4 fL (7.4-10.4); Nucleated Red Blood Cells % 0.1; Platelet Count 160 10^3/uL (150-450); Red Blood Count 3.42 10^6 /uL (4.18-5.48); Red Cell Distribution Width 20 % (10.5-15); White Blood Count 4.8 10^3/uL (3.5-10.8)
[2018-08-21 06:59] LABS: Albumin 3.2 g/dL (3.2-5.2); Albumin/Globulin Ratio 1.2 (1-3); BUN/Creatinine Ratio 11.8 (8-20); Calcium 8.6 mg/dL (8.6-10.3); EGFR African American 173.4 (>60); EGFR Non-African American 143.3 (>60); Globulin 2.6 g/dL (2-4); Potassium 4.4 mmol/L (3.5-5.0); Total Bilirubin 0.7 mg/dL (0.2-1.0); Total Protein 5.8 g/dL (6.4-8.9)
[2018-08-21] MEDS: Ursodiol CAP* 300 MG PO SCH ×2 (08:13→21:56)
--- NOTE | 2018-08-21 08:42 | PN ---
Subjective Date of Service: 08/21/18 Interval History: Mr. Pop is feeling pretty good today. He has no pain. His fever has resolved on tylenol and his headache is also resolved. He still has some chills. Nausea is better, he is going to try to eat some breakfast. Denies melena, hematochezia. Breathing is comfortable. Has had a few nosebleeds over the past few days. Objective Active Medications: Acetaminophen (Tylenol Tab*) 650 mg PO Q6H PRN PRN Reason: HEADACHE/PAIN Last Admin: 08/20/18 23:31 Dose: 650 mg Apixaban (Eliquis*) 5 mg PO DAILY [facility] Last Admin: 08/21/18 08:13 Dose: 5 mg Piperacillin Sod/Tazobactam (Sod 3.375 gm/ Sodium Chloride) 100 mls @ 25 mls/ hr IVPB 0600,1400,2200 [facility] Last Admin: 08/21/18 05:48 Dose: 25 mls/hr Melatonin (Melatonin) 3 mg PO BEDTIME PRN PRN Reason: SLEEP Last Admin: 08/20/18 23:31 Dose: 3 mg Ondansetron HCl (Zofran Inj*) 4 mg IV Q6H PRN PRN Reason: NAUSEA Pharmacy Consult (Zosyn Per Pharmacy*) 1 note FOLLOW UP .ZOSYN PER PHARMACY [facility] Tramadol HCl (Ultram*) 50 mg PO Q6HR PRN PRN Reason: PAIN Ursodiol (Actigall Cap*) 300 mg PO BID [facility] Last Admin: 08/21/18 08:13 Dose: 300 mg Vital Signs - 8 hr 08/21/18 08/21/18 08/21/18 03:42 07:34 08:00 Temperature 97.9 F 98.2 F Pulse Rate 71 72 Respiratory 16 20 17 Rate Blood Pressure 109/63 110/65 (mmHg) O2 Sat by Pulse 100 100 100 Oximetry Oxygen Devices in Use Now: None Appearance: alert, pale, comfortable, well appearing, sitting up in bed Eyes: No Scleral Icterus Ears/Nose/Mouth/Throat: NL Teeth, Lips, Gums Neck: NL Appearance and Movements; NL JVP Respiratory: Symmetrical Chest Expansion and Respiratory Effort, Clear to Auscultation Cardiovascular: NL Sounds; No Murmurs; No JVD, RRR, No Edema Abdominal: - - Y incision healed with keloid, drain over LUQ draining thin brown fluid, mildly tender to palpation diffusely which he says is unchanged from normal Extremities: No Edema Skin: No Rash or Ulcers Neurological: Alert and Oriented x 3 Result Diagrams: 08/21/18 06:01 08/21/18 06:01 Assess/Plan/Problems-Billing Assessment: - Patient Problems (1) Fever Current Visit: Yes Status: Acute Code(s): R50.9 - FEVER, UNSPECIFIED SNOMED Code(s): 202789298 Comment: most concerning for recurrent klebsiella bacteremia, which was a complication of his surgery along with abscess in May cultures are pending UA pending empiric pip/tazo holding off on imaging until further discussion with his surgical team at [facility] (2) Anemia Current Visit: Yes Status: Acute Code(s): D64.9 - ANEMIA, UNSPECIFIED SNOMED Code(s): 494743037 Comment: microcytic and his hgb is 5 g lower than it was 06/04/18, but this was prior to his surgery I discussed this with Dr. Escoto, who says his baseline has been in the 8s over the past few weeks Dr. Escoto suggests that an intraabdominal bleed would be unusual this far out from surgery, and I agree Will recheck this afternoon. Add on LDH. Bili okay so hemolysis unlikely. (3) Hepatocellular carcinoma Current Visit: Yes Status: Acute Code(s): C22.0 - LIVER CELL CARCINOMA SNOMED Code(s): 834761281 Comment: s/p 4 resections, undergoing treatment in [facility] Dacron graft in place--therapeutic eliquis for this reason
[2018-08-21] MEDS ORDERED: Apixaban* 5 MG TAB PO SCH (09:00)
[2018-08-21 09:50] LABS: Urine Appearance Clear; Urine Bilirubin Negative (Negative); Urine Blood Negative (Negative); Urine Color Yellow; Urine Glucose Negative (Negative); Urine Ketones Negative (Negative); Urine Nitrite Negative (Negative); Urine Protein Negative (Negative); Urine Specific Gravity 1.011 (1.010-1.030); Urine Urobilinogen Negative (Negative)
[2018-08-21] MEDS: Acetaminophen TAB* 325 MG PO PRN (14:12)
[2018-08-21 16:23] LABS: Hematocrit 24 % (36-46); Hemoglobin 7.6 g/dL (14.0-18.0); Mean Corpuscular HGB Conc 31 g/dL (31-36); Mean Corpuscular Hemoglobin 22 pg (27-31); Mean Corpuscular Volume 70 fL (80-94); Mean Platelet Volume 8.2 fL (7.4-10.4); Platelet Count 165 10^3/uL (150-450); Red Blood Count 3.46 10^6 /uL (4.18-5.48); Red Cell Distribution Width 19 % (10.5-15); White Blood Count 4.8 10^3/uL (3.5-10.8)
[2018-08-21] MEDS: Apixaban* 5 MG TAB PO SCH (21:55)
[2018-08-22] MEDS: ZOSYN 3.375 GM Q8H per EXTENDED INFUSION IVPB SCH ×6 (05:26→22:04)
[2018-08-22 06:53] LABS: ABS Basophils 0 10^3/ul (0-0.2); ABS Eosinophils 0.1 10^3/ul (0-0.6); ABS Lymphocytes 1.1 10^3/ul (1.0-4.8); ABS Monocytes 0.4 10^3/ul (0-0.8); ABS Neutrophils 2.9 10^3/ul (1.5-7.7); ABS Nucleated RBC 0 10^3/ul; Eosinophil % 3.3 %; Hematocrit 24 % (36-46); Hemoglobin 7.6 g/dL (14.0-18.0); Lymphocyte % 24.4 %; Mean Corpuscular HGB Conc 32 g/dL (31-36); Mean Corpuscular Hemoglobin 22 pg (27-31); Mean Corpuscular Volume 70 fL (80-94); Nucleated Red Blood Cells % 0.1; Platelet Count 172 10^3/uL (150-450); Red Blood Count 3.41 10^6 /uL (4.18-5.48); Red Cell Distribution Width 19 % (10.5-15); White Blood Count 4.6 10^3/uL (3.5-10.8)
[2018-08-22 07:10] LABS: INR 1.41 (0.82-1.09)
[2018-08-22 07:12] LABS: Anion Gap 5 mmol/L (2-11); BUN/Creatinine Ratio 7.2 (8-20); Blood Urea Nitrogen 5 mg/dL (6-24); C Reactive Protein 62.78 mg/L (<8.01); CO2 Carbon Dioxide 29 mmol/L (22-32); Calcium 8.8 mg/dL (8.6-10.3); Chloride 106 mmol/L (101-111); EGFR African American 170.5 (>60); EGFR Non-African American 140.9 (>60); Glucose 93 mg/dL (70-100); Potassium 4.2 mmol/L (3.5-5.0); Sodium 140 mmol/L (135-145)
[2018-08-22 07:17] LABS: Iron < 17 ug/dL (50-212)
[2018-08-22 07:28] LABS: Ferritin 26.3 ng/mL (24-336)
[2018-08-22] MEDS: Apixaban* 5 MG TAB PO SCH (09:49)
[2018-08-22] MEDS: Ursodiol CAP* 300 MG PO SCH ×2 (10:14→22:13)
[2018-08-22] MEDS: Apixaban* 2.5 MG TAB PO SCH ×2 (10:14→22:09)
--- NOTE | 2018-08-22 14:20 | PN ---
Subjective Date of Service: 08/22/18 Interval History: No overnight events. He feels pretty good. Still has a slight headache but otherwise has no complaints. Abdominal discomfort is at baseline since May. No diarrhea, no more fevers, appetite is good. Objective Active Medications: Acetaminophen (Tylenol Tab*) 650 mg PO Q6H PRN PRN Reason: HEADACHE/PAIN Last Admin: 08/21/18 14:12 Dose: 650 mg Apixaban (Eliquis*) 2.5 mg PO BID [facility] Last Admin: 08/22/18 10:14 Dose: 2.5 mg Piperacillin Sod/Tazobactam (Sod 3.375 gm/ Sodium Chloride) 100 mls @ 25 mls/ hr IVPB 0600,1400,2200 [facility] Last Admin: 08/22/18 05:26 Dose: 25 mls/hr Melatonin (Melatonin) 3 mg PO BEDTIME PRN PRN Reason: SLEEP Last Admin: 08/20/18 23:31 Dose: 3 mg Ondansetron HCl (Zofran Inj*) 4 mg IV Q6H PRN PRN Reason: NAUSEA Pharmacy Consult (Zosyn Per Pharmacy*) 1 note FOLLOW UP .ZOSYN PER PHARMACY [facility] Tramadol HCl (Ultram*) 50 mg PO Q6HR PRN PRN Reason: PAIN Ursodiol (Actigall Cap*) 300 mg PO BID [facility] Last Admin: 08/22/18 10:14 Dose: 300 mg Vital Signs - 8 hr 08/22/18 08/22/18 08/22/18 07:40 07:54 08:00 Temperature 98.0 F 98.2 F Pulse Rate 71 60 Respiratory 16 16 Rate Blood Pressure 115/67 111/59 (mmHg) O2 Sat by Pulse 100 100 100 Oximetry 08/22/18 08/22/18 11:02 13:40 Temperature 98.2 F 97.2 F Pulse Rate 91 72 Respiratory 16 12 Rate Blood Pressure 111/65 105/62 (mmHg) O2 Sat by Pulse 99 100 Oximetry Oxygen Devices in Use Now: None Appearance: alert, pale, well appearing Eyes: No Scleral Icterus Ears/Nose/Mouth/Throat: NL Teeth, Lips, Gums Neck: NL Appearance and Movements; NL JVP Respiratory: Symmetrical Chest Expansion and Respiratory Effort, Clear to Auscultation, - - decreased breath sounds at the bases Cardiovascular: NL Sounds; No Murmurs; No JVD Abdominal: - - large Y-shaped incision that is well healed, drain LUQ, tenderness to palpation diffusely that he says is unchanged from baseline Extremities: No Edema Skin: No Rash or Ulcers Neurological: Alert and Oriented x 3 Result Diagrams: 08/22/18 06:34 08/22/18 06:34 Microbiology and Other Data: Microbiology 08/20/18 17:13 Aerobic Blood Culture - Preliminary Blood Venous No Growth Day 1 Anaerobic Blood Culture - Preliminary No Growth Day 1 08/20/18 17:13 Aerobic Blood Culture - Preliminary Blood Venous No Growth Day 1 Anaerobic Blood Culture - Preliminary No Growth Day 1 Assess/Plan/Problems-Billing Assessment: This is a 23 year old man with h/o HCC s/p resections x 4 and history of Klebsiella bacteremia and intraabdominal abscess who was admitted 08/20 with fevers and concern for recurrent bacteremia - Patient Problems (1) Fever Current Visit: Yes Status: Acute Code(s): R50.9 - FEVER, UNSPECIFIED SNOMED Code(s): 355664605 Comment: now resolved on empiric abx (pip/tazo) blood cultures negative x 24 hours UA is negative, CXR unremarkable, no localizing complaints, teeth are good, no diarrhea, etc. Check abd US today (2) Anemia Current Visit: Yes Status: Acute Code(s): D64.9 - ANEMIA, UNSPECIFIED SNOMED Code(s): 701686956 Comment: microcytic and iron studies are consistent with iron deficiency Dr. Escoto suggests that an intraabdominal bleed would be unusual this far out from surgery, and I agree hgb has been stable, will add po iron bili/LDH okay (3) Hepatocellular carcinoma Current Visit: Yes Status: Acute Code(s): C22.0 - LIVER CELL CARCINOMA SNOMED Code(s): 698003465 Comment: s/p 4 resections, undergoing treatment in [facility] Dacron graft in place--prophylactic eliquis for this reason (had been on 5mg BID and was having nosebleeds; on further review he had only been on lovenox 40mg once daily, so only a ppx dose was indicated; therefore a ppx dose of eliquis is more appropriate)
[2018-08-22] MEDS: Melatonin 3 MG TAB PO PRN (22:09)
[2018-08-23] MEDS: ZOSYN 3.375 GM Q8H per EXTENDED INFUSION IVPB SCH ×2 (06:01)
[2018-08-23 08:12] LABS: Hematocrit 25 % (42-52); Hemoglobin 7.8 g/dL (14.0-18.0); Mean Corpuscular HGB Conc 31 g/dL (31-36); Mean Corpuscular Hemoglobin 22 pg (27-31); Mean Corpuscular Volume 70 fL (80-94); Mean Platelet Volume 8.1 fL (7.4-10.4); Platelet Count 197 10^3/uL (150-450); Red Blood Count 3.54 10^6 /uL (4.18-5.48); Red Cell Distribution Width 20 % (10.5-15)
[2018-08-23] MEDS: Apixaban* 2.5 MG TAB PO SCH (08:46)
[2018-08-23] MEDS: Ursodiol CAP* 300 MG PO SCH (08:46)
[2018-08-23] MEDS ORDERED: Ferrous Sulfate TAB* 325 MG PO SCH (09:00)
[2018-08-23 11:22] VITALS: BP 107/54
--- NOTE | 2018-08-23 13:55 | DS ---
CC: Dr. Serjio Fan, [facility] and [facility], [address], [place] [address] * DISCHARGE SUMMARY: DATE OF ADMISSION: 08/20/18 DATE OF DISCHARGE: 08/23/18 PRINCIPAL DISCHARGE DIAGNOSES: 1. Fever. 2. Iron-deficiency anemia. SECONDARY DISCHARGE DIAGNOSES: 1. History of hepatocellular carcinoma. 2. History of liver resection, complicated by klebsiella bacteremia. 3. Epistaxis. MEDICATIONS AT DISCHARGE: 1. Melatonin 5 mg q.h.s. p.r.n. insomnia. 2. Zofran 4 mg q.6 p.r.n. nausea. 3. Tramadol 50 mg q.6 p.r.n. pain. 4. Ursodiol 300 mg b.i.d. 5. Ferrous sulfate 325 mg daily. 6. Augmentin 875 mg b.i.d. for 4 more days. 7. Eliquis 2.5 mg b.i.d. PHYSICAL EXAM AT DISCHARGE: Temperature 97.4, heart rate 70, respiratory rate 16, pulse ox 100% on room air, blood pressure 109/55. General: Alert, pale, young man in no distress. He is resting comfortably. HEENT: Pupils are 3 mm bilaterally and reactive to light. Oral mucosa is moist. He has conjunctival pallor. Neck: No JVP or adenopathy. Chest: He has an irregular rate and rhythm with no murmurs. His PMI is not displaced. His lungs are clear bilaterally. Abdomen: He has a large Y incision that is well healed with keloid formation and a NESHA drain in the left upper quadrant, draining thin green liquid. He is mildly tender diffusely to palpation, which he reports is unchanged from his baseline. He has no CVA tenderness. Extremities: No edema , rashes, or ulcers. Neurologic: He is oriented x3. He has no asterixis and his strength is 5/5 in all extremities. PERTINENT IMAGING FROM THIS ADMISSION: An abdominal ultrasound was obtained on 08/22/18 and showed status post cholecystectomy and resection of the right lobe of the liver and splenomegaly. PERTINENT LABS FROM THIS ADMISSION: Blood cultures from 08/20/18 have no growth to date from both aerobic and anaerobic bottles. Hemoglobin at admission was 8.8. At the time of discharge, it is 7.8. His baseline is reported to be around 9. Iron studies were significant for a serum iron of less than 17, ferritin 26, and MCV is 70. HOSPITAL COURSE BY PROBLEM: 1. Fevers. Mr. Pop was admitted for fevers at home, and when he arrived to the emergency department, his temperature was 100.5. Blood cultures were sent from the ED, and he was started empirically on Zosyn given his history of klebsiella bacteremia. His blood cultures remained negative and he had no further fevers throughout his hospitalization. His subjective symptoms of malaise, headache, and chills resolved and remainder of an infectious workup was negative including an x- ray and urinalysis. He had no other localizing symptoms. At the time of admission, he did report a change in odor to the NESHA drainage; however, that has since resolved and the drain output had increased prior to admission, but is now back to baseline at approximately 300 cc q.12. While no infectious source has definitively been found, the fact that he has defervesced and improved symptomatically on Zosyn suggest an occult infection, and while it may be viral, I think it is prudent to still continue him on a course of p.o. antibiotics, and I am discharging him on Augmentin for a total of 7-day course. He has followup on Monday which is 4 days from now at [place] with his transplant surgeon. 2. Iron-deficiency anemia. His hemoglobin was noted to be below his baseline with no source of bleeding. He had recently been switched from prophylactic Lovenox to full dose Eliquis by Gastroenterology because of the presence of a Dacron graft, and he reported having daily epistaxis. His iron studies were consistent with iron deficiency anemia, so I have started him on p.o. iron. Regarding the anticoagulation, he decided himself that 5 mg of Eliquis twice a day was too much, so requested that it be switched to 2.5 mg twice a day. I think this is reasonable given the fact that he was on a prophylactic dose of Lovenox as well and 2.5 mg of Eliquis twice today is the prophylactic dose. 3. Hepatocellular carcinoma, status post 4 resections with a Dacron graft in place. He has close followup with his surgeons at [place], which he will attend early next week. 4. Disposition: Mr. Pop is in good condition at the time of discharge. NEW MEDICATIONS AT DISCHARGE: 1. Ferrous sulfate. 2. Augmentin. 3. The Eliquis dose has been reduced to 2.5 mg b.i.d. TIME SPENT: 40 minutes was spent on this discharge. [id number]/[facility] #: [id number] MTDD
== END 2018-08-23 12:45 | disposition home or self-care (01) ==
LOC: ED 16:04 → MED 20:57 → INTOOBSV 20:57
PROVIDERS: ADMIT Internal Medicine; ATTEND Internal Medicine
DX: R50.9 Fever, unspecified (principal); D50.9 Iron deficiency anemia, unspecified; Z85.05 Personal history of malignant neoplasm of liver; Z90.89 Acquired absence of other organs; R04.0 Epistaxis; R11.0 Nausea; R53.83 Other fatigue; Z79.01 Long term (current) use of anticoagulants; C22.0 Liver cell carcinoma
CPT/HCPCS: 36415; 71046; 76700; 80048; 80053; 81003; 82550; 82728; 83540; 83605; 83615; 83880; 85025; 85027; 85384; 85610; 85652; 85730; 86140; 86850; 86900; 86901; 87040; 93005; 96361; 96365; 96375; 99284; A9270-GY; G0378; J2405; J2543

== ENCOUNTER 2018-08-25 16:40 | Emergency (ER) | payer OTHER ==
[2018-08-25] MEDS ORDERED: NS 0.9% 1000 ML** 1,000 ML IV.FLUID IV ONE (18:07)
[2018-08-25] MEDS ORDERED: Vancomycin(*) 1,000 MG BAG/ADDV IVPB ONE (18:19)
--- NOTE | 2018-08-25 18:21 | ED ---
Skin Complaint - HPI Summary HPI Summary: 23-year-old male presents with potential infection of abdominal incision. 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 He states that he was just admitted here couple days ago due to fevers and chills and was placed on zosyn. culture came back negative so unclearly why had fever. He was discharged 2 days ago and started on Augmentin. He states that when he went home he developed some swelling along his incision for his abdominal reconstruction done in May at [facility] done by dr Durbin. He states yesterday he was able to express some pus like lesion over his incision when he squeezed. his biliary drain has been draining yellow fluid. denies any current fever or chills. states that he feels well. no abdominal pain, nausea or vomiting. had normal bm today. he has an appointment on monday with [facility] but when called with symptoms was advised to come here. he denies any urinary symptoms. no cough, chest pain or sob. he has had an abscess before but denies any history of mrsa. - History of Current Complaint Chief Complaint: EDRashSkinAbscess Time Seen by Provider: 08/25/18 17:57 Stated Complaint: "INFECTION IN INCISION PER PT" Pain Intensity: 0 - Additional Pertinent History Primary Care Physician: [id number] - Allergy/Home Medications Allergies/Adverse Reactions: Allergies Allergy/AdvReac Type Severity Reaction Status Date / Time Iodinated Contrast- Oral and Allergy Swelling Verified 08/25/18 17:03 IV Dye Of Face,Lips,& Throat PMH/Surg Hx/FS Hx/Imm Hx Endocrine/Hematology History: Denies: Hx Diabetes - DOES TAKE METFORMIN - IS NOT A DIABETIC Cardiovascular History: Denies: Hx Hypertension, Hx Pacemaker/ICD GI History: Reports: Other GI Disorders - 70% of Liver removed due to CA History: Denies: Hx Dialysis, Hx Renal Disease Sensory History: Denies: Hx Contacts or Glasses, Hx Hearing Aid Opthamlomology History: Denies: Hx Contacts or Glasses Psychiatric History: Denies: Hx Eating Disorder, Hx Panic Disorder, Hx of Violent Episodes Against Others - Cancer History Cancer Type, Location and Year: Liver, 2014, 2016 Hx Chemotherapy: No Hx Radiation Therapy: No Hx Palliative Cancer Treatment: No - Surgical History Surgery Procedure, Year, and Place: LIVER RESECTION JUNE 2014;. SECOND LIVER RESECTION 09/2016 WITH MASS REMOVAL FROM AROUND LIVER AND NEAR ESOPHAGUS; - Immunization History Date of Tetanus Vaccine: utd Date of Influenza Vaccine: unk Infectious Disease History: No Infectious Disease History: Denies: Traveled Outside the [place] in Last 30 Days - Family History Known Family History: Negative: Cardiac Disease, Hypertension, Diabetes - Social History Alcohol Use: None Substance Use Type: Reports: Marijuana Substance Use Comment - Amount & Last Used: cannabis oil Smoking Status (MU): Never Smoked Tobacco Review of Systems Negative: Fever, Chills Negative: Chest Pain Negative: Shortness Of Breath Positive: Rash All Other Systems Reviewed And Are Negative: Yes Physical Exam Triage Information Reviewed: Yes Vital Signs On Initial Exam: Initial Vitals Temp Pulse Resp BP Pulse Ox 99.7 F 110 14 129/75 97 08/25/18 16:51 08/25/18 16:51 08/25/18 16:51 08/25/18 16:51 08/25/18 16:51 Vital Signs Reviewed: Yes Appearance: Positive: Well-Appearing Skin: Positive: Warm, Dry, Other - incisions across abd with biliary drain in place. 2 areas of crust yellow scab with erythema minimial around one on center of abd and other on right side of abd along surgical scars. no active drainage from wounds. no surround erythema. Head/Face: Positive: Normal Head/Face Inspection Eyes: Positive: Normal, Conjunctiva Clear ENT: Positive: Pharynx normal Respiratory/Lung Sounds: Positive: Clear to Auscultation, Breath Sounds Present Cardiovascular: Positive: Normal, RRR Abdomen Description: Positive: Nontender, Soft, Other: - biliary drain in place Bowel Sounds: Positive: Present Musculoskeletal: Positive: Normal Neurological: Positive: Normal Psychiatric: Positive: Normal Procedures - Incision and Drainage abd Site: middle abd Anesthesia: Local Packing: Gauze side abd Site: side abd Anesthesia: Local Instrument(s): Scalpel Packing: Gauze Diagnostics - Vital Signs Vital Signs Temp Pulse Resp BP Pulse Ox 08/25/18 18:00 90 16 99 08/25/18 17:57 96 16 98 08/25/18 17:44 93 18 112/66 99 08/25/18 16:51 99.7 F 110 14 129/75 97 - Laboratory Result Diagrams: 08/25/18 17:54 08/25/18 17:54 Lab Statement: Any lab studies that have been ordered have been reviewed, and results considered in the medical decision making process. - Ultrasound No standard instances Ultrasound Interpretation Completed By: Radiologist Summary of Ultrasound Findings: IMPRESSION: Ultrasound reveals 2 small fluid collections near the incision which have the. appearance of phlegmon/seroma. Re-Evaluation - Re-Evaluation First Eval Re-Evaluation Time: 20:08 Comment: discussed with dr craven surgeon representative personal service for dr durbin ([phone]) and said to drain the areas and get a culture. told continue augmentin. Second Eval Comment: abscess middle abd now open after ultrasound and draining so just placed packing in that abscess Course/Dx - Course Course Of Treatment: 23-year-old male presents with potential infection of incision. he has history of liver carcinoma is followed by [facility]. He states that he was just admitted here couple days ago due to fevers and chills and was placed on zosyn. culture came back negative. He was discharged 2 days ago started on Augmentin. He states that when he went home he developed some swelling along his incision for his abdominal reconstruction done in May at [facility] done by dr Durbin. He states yesterday he was able to express some pus like lesion over his incision. his biliary drain has been draining yellow fluid. on exam no erythema around the wound. has two areas of white crusted blister with some erythema around. wbc normal. gave dose of vanco. ultrasound shows two small fluid collections. discussed with surgeon representative personal service for dr durbin at [facility] and said need to drain abscess and continue augmentin and other mora follow up. central abd abscess is currently open and draining after ultrasound so irrigated area and applied packing. abscess on right side of abd made small incision and got 1cc of serous fluid drainage and irrigated and packed wound. told continue augmentin. will send wound for culture so that [facility] can be followed up with result. as no evidence of cellulitis or sepsis and abscess will able to be drained will discharge to have follow up on omnday with [facility]. warned if devleop fever to return. patient understand and agrees with plan. - Differential Diagnoses - Skin Complaint Differential Diagnoses: Abscess, Cellulitis, Contact Dermatitis - Diagnoses Provider Diagnoses: Abscess Discharge - Sign-Out/Discharge Documenting (check all that apply): Patient Departure Patient Received Moderate/Deep Sedation with Procedure: No - Discharge Plan Condition: Good Disposition: HOME Patient Education Materials: Abscess (ED) Referrals: Izzy Ortiz MD [Primary Care Provider] - Additional Instructions: continue antibiotic Take ibuprofen or Tylenol for pain every 6 hours Follow up with surgeon as scheduled Return to ED if develop fever, area of redness spreads, or any new or worsening symptoms - Billing Disposition and Condition Condition: GOOD Disposition: Home
[2018-08-25] MEDS ORDERED: Vancomycin(*) 1,000 MG in NS 0.9% 250 ML* 250 ML IVPB ONE (18:30)
[2018-08-25 18:40] LABS: ABS Eosinophils 0.3 10^3/ul (0-0.6); ABS Lymphocytes 1.3 10^3/ul (1.0-4.8); ABS Monocytes 0.6 10^3/ul (0-0.8); ABS Neutrophils 3.9 10^3/ul (1.5-7.7); Activated Partial Thrombo Time 39.6 seconds (26.0-36.3); Hematocrit 27 % (42-52); Hemoglobin 8.2 g/dL (14.0-18.0); INR 1.4 (0.82-1.09); Lymphocyte % 20.7 %; Mean Corpuscular HGB Conc 31 g/dL (31-36); Mean Corpuscular Hemoglobin 21 pg (27-31); Mean Corpuscular Volume 70 fL (80-94); Mean Platelet Volume 7.8 fL (7.4-10.4); Platelet Count 253 10^3/uL (150-450); Red Blood Count 3.88 10^6 /uL (4.18-5.48); Red Cell Distribution Width 20 % (10.5-15); White Blood Count 6.1 10^3/uL (3.5-10.8)
[2018-08-25 18:50] LABS: Albumin 3.8 g/dL (3.2-5.2); Albumin/Globulin Ratio 1.2 (1-3); BUN/Creatinine Ratio 12.7 (8-20); C Reactive Protein 34.67 mg/L (<8.01); Calcium 8.9 mg/dL (8.6-10.3); EGFR African American 164.9 (>60); EGFR Non-African American 136.3 (>60); Globulin 3.1 g/dL (2-4); Potassium 3.7 mmol/L (3.5-5.0); Total Bilirubin 0.5 mg/dL (0.2-1.0); Total Protein 6.9 g/dL (6.4-8.9)
[2018-08-25] MEDS ORDERED: Vancomycin(*) 1,000 MG VIAL IVPB SCH (19:00)
[2018-08-25] MEDS ORDERED: LORazepam INJ* 2 MG/ML 1 ML VIAL IV PUSH ONE (20:37)
[2018-08-25] MEDS ORDERED: Lorazepam PYXIS KEY PRN (20:37)
[2018-08-25] MEDS ORDERED: Lorazepam PYXIS KEY ONE (20:40)
[2018-08-25 21:47] VITALS: BP 113/69
== END 2018-08-25 21:50 | disposition home or self-care (01) ==
LOC: ED 16:40
DX: L02.211 Cutaneous abscess of abdominal wall (principal)
CPT/HCPCS: 36415; 76705; 80053; 83605; 85025; 85610; 85730; 86140; 87040; 87070; 87205; 96361; 96374; 96375; 96376; 99283; J2060; J3370

== ENCOUNTER 2019-04-07 23:35 | Observation (INO) | payer OTHER ==
[2019-04-08] MEDS ORDERED: NS 0.9% 1000 ML** 1,000 ML IV ONE (00:15)
[2019-04-08] MEDS ORDERED: Ondansetron INJ* 2 MG/ML VIAL IV ONE (00:15)
[2019-04-08] MEDS ORDERED: Morphine 4 MG/ML VIAL (1 ml) 4 MG/ML VIAL IV ONE (00:25)
--- NOTE | 2019-04-08 00:27 | ED ---
Abdominal Pain/Male - HPI Summary HPI Summary: Patient complains of severe abdominal pain, nausea/vomiting starting this morning getting worse tonight. Pain upper abdominal, constant with waves of intense pain, rated at worst 9/10. Denies fever, cough, sore throat, CP, SOB, change in urine, change in BM, penile or testicular symptoms. Medical history is hepatocellular carcinoma, with history of tumor removal and multiple subsequent lymph node removal. Patient followed by oncology and surgery at [facility] in [facility]. States history of recent follow-up with oncology in the beginning of February with neg MRI and CAT scan. Patient on Eliquis. - History of Current Complaint Chief Complaint: EDAbdPain Stated Complaint: ABD PAIN PER PT Time Seen by Provider: 04/08/19 00:10 Hx Obtained From: Patient Onset/Duration: Sudden Onset, Lasting Hours Timing: Constant Severity Initially: Severe Severity Currently: Moderate Pain Intensity: 5 Pain Scale Used: 0-10 Numeric Location: Epigastric Radiates: No Character: Sharp, Cramping Aggravating Factor(s): Movement Alleviating Factor(s): Nothing Associated Signs And Symptoms: Positive: Decreased Appetite, Nausea, Vomiting - Allergies/Home Medications Allergies/Adverse Reactions: Allergies Allergy/AdvReac Type Severity Reaction Status Date / Time amoxicillin Allergy Hallucinati Verified 04/07/19 23:47 ons Iodinated Contrast Media Allergy Swelling Verified 04/07/19 23:47 [Iodinated Contrast- Oral Of and IV Dye] Face,Lips,& Throat Home Medications: Home Medications Acetaminophen [Tylenol] 650 mg PO Q6H PRN 04/08/19 [History Confirmed 04/08/19] PMH/Surg Hx/FS Hx/Imm Hx Endocrine/Hematology History: Denies: Hx Diabetes - DOES TAKE METFORMIN - IS NOT A DIABETIC Cardiovascular History: Denies: Hx Hypertension, Hx Pacemaker/ICD GI History: Reports: Other GI Disorders - 70% of Liver removed due to CA History: Denies: Hx Dialysis, Hx Renal Disease Sensory History: Denies: Hx Contacts or Glasses, Hx Hearing Aid Opthamlomology History: Denies: Hx Contacts or Glasses EENT History: Denies: Hx Deafness Neurological History: Denies: Hx Dementia Psychiatric History: Denies: Hx Eating Disorder, Hx Panic Disorder, Hx of Violent Episodes Against Others - Cancer History Cancer Type, Location and Year: Liver, 2014, 2016 Hx Chemotherapy: No Hx Radiation Therapy: No Hx Palliative Cancer Treatment: No - Surgical History Surgery Procedure, Year, and Place: LIVER RESECTION JUNE 2014;. SECOND LIVER RESECTION 09/2016 WITH MASS REMOVAL FROM AROUND LIVER AND NEAR ESOPHAGUS; - Immunization History Date of Tetanus Vaccine: unk Date of Influenza Vaccine: unk Infectious Disease History: Unable to Obtain/Confirm Infectious Disease History: Denies: Traveled Outside the US in Last 30 Days - Family History Known Family History: Negative: Cardiac Disease, Hypertension, Diabetes - Social History Alcohol Use: None Substance Use Type: Reports: Marijuana Substance Use Comment - Amount & Last Used: cannabis oil Smoking Status (MU): Never Smoked Tobacco Review of Systems Constitutional: Negative Eyes: Negative ENT: Negative Cardiovascular: Negative Respiratory: Negative Positive: Abdominal Pain, Vomiting, Nausea Genitourinary: Negative Musculoskeletal: Negative Skin: Negative Neurological: Negative Psychological: Normal All Other Systems Reviewed And Are Negative: Yes Physical Exam - Summary Physical Exam Summary: Tenderness to palpation in epigastrium, mild tenderness to palpation in right upper quadrant. Mild diffuse tenderness with palpation. Triage Information Reviewed: Yes Vital Signs On Initial Exam: Initial Vitals Temp Pulse Resp BP Pulse Ox 99.3 F 68 16 129/81 99 04/07/19 23:44 04/07/19 23:44 04/07/19 23:44 04/07/19 23:44 04/07/19 23:44 Vital Signs Reviewed: Yes Appearance: Positive: Well-Appearing Skin: Positive: Warm Head/Face: Positive: Normal Head/Face Inspection Eyes: Positive: Normal Neck: Positive: Supple Respiratory/Lung Sounds: Positive: Clear to Auscultation Cardiovascular: Positive: Normal Abdomen Description: Positive: Other: Musculoskeletal: Positive: Normal Neurological: Positive: Normal Psychiatric: Positive: Normal AVPU Assessment: Alert - Josh Coma Scale Best Eye Response: 4 - Spontaneous Best Motor Response: 6 - Obeys Commands Best Verbal Response: 5 - Oriented Coma Scale Total: 15 Procedures - Sedation Patient Received Moderate/Deep Sedation with Procedure: No Diagnostics - Vital Signs Vital Signs Temp Pulse Resp BP Pulse Ox 04/08/19 00:14 72 100 04/08/19 00:13 60 117/80 100 04/07/19 23:44 99.3 F 68 16 129/81 99 - Laboratory Result Diagrams: 04/08/19 06:09 04/08/19 06:09 Lab Statement: Any lab studies that have been ordered have been reviewed, and results considered in the medical decision making process. Abdominal Pain Male Course/Dx - Course Course Of Treatment: Patient complains of severe abdominal pain, nausea/ vomiting starting this morning getting worse tonight. Pain upper abdominal, constant with waves of intense pain, rated at worst 9/10. Denies fever, cough, sore throat, CP, SOB, change in urine, change in BM, penile or testicular symptoms. Medical history is hepatocellular carcinoma, with history of tumor removal and multiple subsequent lymph node removal. Patient followed by oncology and surgery at [facility] in [facility]. States history of recent follow-up with oncology in the beginning of February with neg MRI and CAT scan. Patient on Eliquis. Vital signs within normal limits. Mildly elevated LFTs, history of same. Elevated alkaline phosphatase, history of same. Labs otherwise unremarkable. CT abdomen and pelvis without contrast: Status post partial right hepatectomy with increased surgical clips along the resected margin and around the GE junction since 05/06/2016. Enlarged left hepatic lobe which appears increased since the prior study. Splenomegaly which is mildly increased since the prior study. Mild peritoneal ascites which is new. Peritoneal nodule suggested medial to the posterior aspect of the splenic tip measuring 19 x 16 x 26 mm and is new and may reflect a peritoneal implant. Rectal wall thickening with perirectal induration which is similar to prior study and may reflect distal colitis or proctitis. Admitted to hospitalist. - Diagnoses Provider Diagnoses: Abdominal pain, Nausea & vomiting Discharge ED - Sign-Out/Discharge Documenting (check all that apply): Patient Departure - Discharge Plan Condition: Stable Disposition: ADMITTED TO [facility] - Billing Disposition and Condition Condition: STABLE Disposition: Admitted to [facility]
[2019-04-08 00:31] LABS: ABS Lymphocytes 1.7 10^3/ul (1.0-4.8); ABS Monocytes 0.4 10^3/ul (0-0.8); ABS Neutrophils 3.7 10^3/ul (1.5-7.7); Eosinophil % 0.7 %; Hematocrit 36 % (42-52); Hemoglobin 12.5 g/dL (14.0-18.0); Lymphocyte % 28.3 %; Mean Corpuscular HGB Conc 34 g/dL (31-36); Mean Corpuscular Hemoglobin 30 pg (27-31); Mean Corpuscular Volume 88 fL (80-94); Mean Platelet Volume 8.3 fL (7.4-10.4); Platelet Count 158 10^3/uL (150-450); Red Blood Count 4.11 10^6 /uL (4.18-5.48); Red Cell Distribution Width 14 % (10-15); White Blood Count 5.9 10^3/uL (3.5-10.8)
[2019-04-08 00:48] LABS: Albumin 4.1 g/dL (3.2-5.2); Albumin/Globulin Ratio 1.3 (1-3); BUN/Creatinine Ratio 16.7 (8-20); C Reactive Protein 26.37 mg/L (<8.01); Calcium 9.7 mg/dL (8.6-10.3); EGFR African American 160.9 (>60); Globulin 3.2 g/dL (2-4); Total Bilirubin 1.2 mg/dL (0.2-1.0); Total Protein 7.3 g/dL (6.4-8.9)
[2019-04-08] MEDS: Ondansetron INJ* 2 MG/ML VIAL IV PRN ×2 (04:27→21:17)
[2019-04-08] MEDS: Morphine INJ* 4 MG/ML 1 ML SYRINGE (NEW SYRINGE VERSION) IV PRN ×2 (04:27→21:17)
[2019-04-08 04:56] LABS: Urine Appearance Clear; Urine Bilirubin Negative (Negative); Urine Blood Negative (Negative); Urine Color Amber; Urine Glucose Negative (Negative); Urine Ketones Negative (Negative); Urine Nitrite Negative (Negative); Urine Protein Negative (Negative); Urine Specific Gravity 1.026 (1.010-1.030); Urine Urobilinogen Negative (Negative)
[2019-04-08 06:33] LABS: ABS Eosinophils 0.1 10^3/ul (0-0.6); ABS Lymphocytes 1.4 10^3/ul (1.0-4.8); ABS Monocytes 0.4 10^3/ul (0-0.8); ABS Neutrophils 2.4 10^3/ul (1.5-7.7); Eosinophil % 1.5 %; Hematocrit 32 % (42-52); Hemoglobin 10.7 g/dL (14.0-18.0); Lymphocyte % 33.4 %; Mean Corpuscular HGB Conc 34 g/dL (31-36); Mean Corpuscular Hemoglobin 30 pg (27-31); Mean Corpuscular Volume 87 fL (80-94); Mean Platelet Volume 8.6 fL (7.4-10.4); Nucleated Red Blood Cells % 0.1; Platelet Count 153 10^3/uL (150-450); Red Blood Count 3.62 10^6 /uL (4.18-5.48); Red Cell Distribution Width 14 % (10-15); White Blood Count 4.2 10^3/uL (3.5-10.8)
[2019-04-08 06:45] LABS: Albumin 3.4 g/dL (3.2-5.2); Albumin/Globulin Ratio 1.3 (1-3); BUN/Creatinine Ratio 15.5 (8-20); EGFR African American 163.6 (>60); EGFR Non-African American 135.2 (>60); Globulin 2.7 g/dL (2-4); Potassium 4.3 mmol/L (3.5-5.0); Total Protein 6.1 g/dL (6.4-8.9)
[2019-04-08] MEDS: Heparin VIAL(*) 5000 UNITS/ML VIAL (FIVE THOUSAND) SUBCUT SCH ×2 (06:54→13:40)
[2019-04-08] MEDS: NS 0.9% 1000 ML** 1,000 ML IV SCH ×2 (06:54→13:19)
[2019-04-08] MEDS: Pantoprazole IV* 40 MG IV SCH (09:35)
--- NOTE | 2019-04-08 11:23 | HP ---
CC: Edward Cintron MD, [facility]; Shai Mcintosh; Dr. Prudence Durbin, [facility]; Dr. Fernando Marcano, [facility] [place], [facility] ADMISSION HISTORY AND PHYSICAL: DATE OF ADMISSION: 04/08/19 CHIEF COMPLAINT: Abdominal pain. HISTORY OF PRESENT ILLNESS: Mr. 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 He states the pain was moderate throughout the day, waxing and hollie ng intensity, but much worse this evening where it lida to 9/10 level. The pain is mainly located in the epigastric region. He tried to eat a little food this evening and began vomiting, which led him to come to the emergency department. He has not seen any blood in his stool or any blood in his vom itus. He has not had any fevers. He reports a normal bowel movement this morning. The patient was diagnosed with a fibrolamellar-type hepatocellular carcinoma in 2014. He has had mul tiple resections of liver lesions and lymph node resections. He has required biliary diversion and wh en he was last admitted to this hospital in July of this year, he had a fresh Dacron graft that requ ired anticoagulation. At this time, he does not have a cholecystectomy tube or any anticoagulation. He most recently has been followed with serial CT abdomen and pelvis with contrast, but he has an al lergy to contrast that he requires pretreatment. He has also had MRIs of the abdomen. He sees Dr. Lazaro Durbni at [facility] for [facility] and has seen Dr. Fernando Marcano and ot her part of this team at [facility]. Most recently, he was treated with an experimental chemotherapy protocol, which he states appeared to stop the growth of the peritoneal metastases. His last dose was around the middle of February 2019 and this was stopped due to elevate d liver enzymes and a concern that the medication was causing liver inflammation. PAST MEDICAL HISTORY: Includes only this fibrolamellar type hepatocellular carcinoma as well as inso mnia and mild abdominal pain that is intermittent and moderate. PAST SURGICAL HISTORY: Includes the initial right hepatic lobe excision and then 3 other surgeries f or lymph node retrieval and biliary diversion and vascular revisions. MEDICATIONS ON ADMISSION: 1. Acetaminophen 650 q.6 hours p.r.n. for fever or pain. 2. Melatonin 5 mg sublingual q.p.m. as needed 3. Ondansetron 4 mg p.o. q.6 hours p.r.n. for nausea. 4. Tramadol 50 mg. p.o. q.6 hours p.r.n. for pain ALLERGIES: IODINATED CONTRAST and AMOXICILLIN. FAMILY HISTORY: He has a brother who is alive and well. He has a mother and father who are alive an d well. There is no family history of unusual liver or other cancers. 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 He is single. He has no child ariela. He does not smoke. He does not use alcohol or drugs. REVIEW OF SYSTEMS: The patient denies any fever or weight loss, but he has had anorexia today. The patient denies any chest pain or palpitations. The patient denies any cough or shortness of breath. He has no urinary complaints. Remainder of the 14-point review of systems negative, other than ment ioned in the HPI. PHYSICAL EXAMINATION GENERAL: He is alert and in no acute distress. VITAL SIGNS: Temperature is 37.4, pulse 59, respirations 15, blood pressure 118/74, O2 sat 97%. HEENT: Head is normocephalic and atraumatic. Sclerae anicteric. Pupils are equal, round, and react ethel to light and accommodation. Oropharynx is moist. No lesions. NECK: No adenopathy. No carotid bruit. No thyromegaly. LUNGS: Clear to auscultation and percussion bilaterally. HEART: Regular rate and rhythm without murmurs or gallops. ABDOMEN: Soft. Tender in the epigastric and right lower quadrant areas. No masses. Positive bowel sounds. There is a large Y-shaped scar and other smaller scars from tubes, etc. All scars are well healed. NEUROLOGIC: Cranial nerves II through XII are intact. Motor strength is 5/5 throughout. Deep tendo n reflexes are symmetric. SKIN: Exam is otherwise normal. PSYCH: He is alert and oriented x3. DIAGNOSTIC STUDIES/LAB DATA: Laboratory Data: Sodium 136, potassium 4.0, chloride 99, bicarb 29, B UN 12, creatinine 0.72, glucose 112, calcium 9.7. Alkaline phosphatase 583, albumin is 4.1, AST 45, ALT 64, bilirubin 1.2, lipase 12. White count 5.9, hemoglobin 12.5, hematocrit 36%, platelets are [address]. Abdominal and pelvis CT without contrast shows right hepatectomy. The left hepatic lobe and spleen a re enlarged. There is mild ascites. There is a 1.6 x 1.9 x 2.6 cm lymph node near the splenic tip. The rectal wall is thickened, but that is unchanged from previous. ASSESSMENT AND PLAN: A 24-year-old man with complicated medical history including multiple surgeries for hepatocellular carcinoma and recent chemotherapy who presents with abdominal pain. The differen tial would include viral or bacterial enteritis. The patient could also be having delayed side effec ts from his experimental chemotherapy regimen. There is no apparent surgical emergency or small-sil l obstruction on his CT. The differential would also include gastritis. The patient will be admitted to the hospital under observation and have intravenous fluids and antiemetics as well as pain contro l. We have decided not to give him any empiric antibiotics at this time and we will discuss the case with his primary cancer team in the morning. He has a cell phone appointment with his [facility] physician and we can use this time to discuss a plan of action going forward. Code status is full. DVT prophylaxis will be with subcutaneous heparin. [id number]/[facility] #: [id number]
--- NOTE | 2019-04-08 17:08 | PN ---
Subjective Date of Service: 04/08/19 Interval History: No acute events overnight. Passed gas this AM. Has chronic intermittent episodes of wave like abdominal pain. This time was more severe and associated with new nausea. Pain currently max 4-5 when comes, lasts 20 seconds. No more N/V Tolerating clears for lunch. Spoke with Dr. Fernando Marcano of [facility] who recommended, if patient is needing a SBO surgery/CELINE to send to [facility] so they can also remove peritoneal implants at the same time. Objective Active Medications: Heparin Sodium (Porcine) (Heparin Vial(*)) 5,000 units SUBCUT Q8HR PENDING SALE TO [facility] Last Admin: 04/08/19 13:40 Dose: Not Given Sodium Chloride (Ns 0.9% 1000 Ml) 1,000 mls @ 125 mls/hr IV PER RATE PENDING [facility] TO [facility] Last Admin: 04/08/19 13:19 Dose: 125 mls/hr Morphine Sulfate (Morphine Inj (Syringe)*) 4 mg IV Q3H PRN PRN Reason: PAIN - SEVERE Last Admin: 04/08/19 04:27 Dose: 4 mg Ondansetron HCl (Zofran Inj*) 4 mg IV Q6H PRN PRN Reason: NAUSEA Last Admin: 04/08/19 04:27 Dose: 4 mg Pantoprazole Sodium (Protonix Iv*) 40 mg IV Q24H PENDING SALE TO [facility] Last Admin: 04/08/19 09:35 Dose: 40 mg Vital Signs - 8 hr 04/08/19 04/08/19 11:15 15:45 Temperature 97.8 F 97.9 F Pulse Rate 55 60 Respiratory 17 16 Rate Blood Pressure 114/71 104/64 (mmHg) O2 Sat by Pulse 100 99 Oximetry Oxygen Devices in Use Now: None Appearance: NAD, sitting in bed. Eyes: No Scleral Icterus Ears/Nose/Mouth/Throat: NL Teeth, Lips, Gums Neck: NL Appearance and Movements; NL JVP Respiratory: Symmetrical Chest Expansion and Respiratory Effort, Clear to Auscultation Cardiovascular: NL Sounds; No Murmurs; No JVD, RRR Abdominal: - - slight tenderness to palpation in RLQ, sharper pain waves come in epigastric Extremities: No Edema Skin: No Rash or Ulcers Neurological: Alert and Oriented x 3 Nutrition: Taking PO's Result Diagrams: 04/08/19 06:09 04/08/19 06:09 Additional Lab and Data: Laboratory Results - last 24 hr 04/08/19 04/08/19 04/08/19 00:26 00:26 00:26 WBC 5.9 RBC 4.11 L Hgb 12.5 L Hct 36 L MCV 88 MCH 30 MCHC 34 RDW 14 Plt Count 158 MPV 8.3 Neut % (Auto) 63.2 Lymph % (Auto) 28.3 [place] % (Auto) 7.5 Eos % (Auto) 0.7 Baso % (Auto) 0.3 Absolute Neuts (auto) 3.7 Absolute Lymphs (auto) 1.7 Absolute Monos (auto) 0.4 Absolute Eos (auto) 0.0 Absolute Basos (auto) 0.0 Absolute Nucleated RBC 0.0 Nucleated RBC % 0.0 Sodium 136 Potassium 4.0 Chloride 99 L Carbon Dioxide 29 Anion Gap 8 BUN 12 Creatinine 0.72 Est GFR ( Amer) 160.9 Est GFR (Non-Af Amer) 133.0 BUN/Creatinine Ratio 16.7 Glucose 112 H Lactic Acid 0.9 Calcium 9.7 Total Bilirubin 1.20 H AST 45 H ALT 64 H Alkaline Phosphatase 583 H C-Reactive Protein 26.37 H Total Protein 7.3 Albumin 4.1 Globulin 3.2 Albumin/Globulin Ratio 1.3 Lipase 12 Urine Color Urine Appearance Urine pH Ur Specific [place] Urine Protein Urine Ketones Urine Blood Urine Nitrate Urine Bilirubin Urine Urobilinogen Ur Leukocyte Esterase Urine Glucose 04/08/19 04/08/19 04/08/19 04:45 06:09 06:09 WBC 4.2 RBC 3.62 L Hgb 10.7 L Hct 32 L MCV 87 MCH 30 MCHC 34 RDW 14 Plt Count 153 MPV 8.6 Neut % (Auto) 56.1 Lymph % (Auto) 33.4 [place] % (Auto) 8.6 Eos % (Auto) 1.5 Baso % (Auto) 0.4 Absolute Neuts (auto) 2.4 Absolute Lymphs (auto) 1.4 Absolute Monos (auto) 0.4 Absolute Eos (auto) 0.1 Absolute Basos (auto) 0.0 Absolute Nucleated RBC 0.0 Nucleated RBC % 0.1 Sodium 137 Potassium 4.3 Chloride 103 Carbon Dioxide 30 Anion Gap 4 BUN 11 Creatinine 0.71 Est GFR ( Amer) 163.6 Est GFR (Non-Af Amer) 135.2 BUN/Creatinine Ratio 15.5 Glucose 95 Lactic Acid Calcium 9.0 Total Bilirubin 1.00 AST 36 ALT 51 Alkaline Phosphatase 498 H C-Reactive Protein Total Protein 6.1 L Albumin 3.4 Globulin 2.7 Albumin/Globulin Ratio 1.3 Lipase Urine Color Tracie Urine Appearance Clear Urine pH 5.0 Ur Specific [place] 1.026 Urine Protein Negative Urine Ketones Negative Urine Blood Negative Urine Nitrate Negative Urine Bilirubin Negative Urine Urobilinogen Negative Ur Leukocyte Esterase Negative Urine Glucose Negative Assess/Plan/Problems-Billing Assessment: 24 yo male PMH metastatic fibromallelar HCC with recent HDAC inhibitor( panobinostat) and intermittent abdominal pain presenting with worse abdominal pain, N/V. CT abd/pelvis was w/o oral contrast, did have some air/fluid levels and slight distention in small bowel. Suspect mild obstructive symptoms now passing gas and reduced pain on conservative management. - Patient Problems (1) Abdominal pain Current Visit: Yes Status: Acute Code(s): R10.9 - UNSPECIFIED ABDOMINAL PAIN SNOMED Code(s): 85650608 Comment: This seems to be acute worsening of sensations he often gets, coming in waves. Suspect mild obstructive symptoms that seem to be improving. Certain positioning helps (bending forward like a yoga "child pose" seem to help pass gas each time). Will advance diet to mechanical soft tonight. Will need to follow-up at [facility] and if symptoms were to worsen would transfer there so that they can also address his known peritoneal implants at same time. (2) Nausea & vomiting Current Visit: Yes Status: Acute Code(s): R11.2 - NAUSEA WITH VOMITING, UNSPECIFIED SNOMED Code(s): 44687714 Comment: ricky gregorion. resolved. (3) Hepatocellular carcinoma Current Visit: No Status: Acute Code(s): C22.0 - LIVER CELL CARCINOMA SNOMED Code(s): 789454113 Comment: s/p 4 resections, undergoing treatment in [facility] Dacron graft in place--prophylactic eliquis for this reason (had been on 5mg BID and was having nosebleeds; on further review he had only been on lovenox 40mg once daily, so only a ppx dose was indicated; therefore a ppx dose of eliquis is more appropriate) (4) ADHD (attention deficit hyperactivity disorder), inattentive type Current Visit: No Status: Acute Code(s): F90.0 - ATTN-DEFCT HYPERACTIVITY DISORDER, PREDOM INATTENTIVE TYPE SNOMED Code(s): 66022182 (5) Anemia Current Visit: No Status: Acute Code(s): D64.9 - ANEMIA, UNSPECIFIED SNOMED Code(s): 603250391 Comment: microcytic and iron studies are consistent with iron deficiency Dr. Escoto suggests that an intraabdominal bleed would be unusual this far out from surgery, and I agree hgb has been stable, will add po iron bili/LDH okay (6) Major depressive disorder Current Visit: No Status: Acute Code(s): F32.9 - MAJOR DEPRESSIVE DISORDER, SINGLE EPISODE, UNSPECIFIED SNOMED Code(s): 550231512 Status and Disposition: medicine, switch to inpatient. Possible d/c 04/09 or 04/10 if continues improvement.
[2019-04-08] MEDS ORDERED: HYDROmorphone INJ1* 1 MG/ML SYRINGE IV SLOW PU ONE (23:27)
[2019-04-09] MEDS: Morphine INJ* 4 MG/ML 1 ML SYRINGE (NEW SYRINGE VERSION) IV PRN ×5 (01:25→19:47)
[2019-04-09] MEDS: Ondansetron INJ* 2 MG/ML VIAL IV PRN ×2 (04:26→19:47)
[2019-04-09] MEDS: Pantoprazole IV* 40 MG IV SCH (08:04)
[2019-04-09] MEDS: NS 0.9% 1000 ML** 1,000 ML IV SCH ×2 (12:19→22:18)
[2019-04-09] MEDS ORDERED: Magnesium CITRATE* 300 ML BTL PO ONE ×2 (14:31→14:33)
[2019-04-09] MEDS ORDERED: Senna TAB 8.6 mg* TAB PO PRN (16:30)
--- NOTE | 2019-04-09 19:31 | PN ---
Subjective Date of Service: 04/09/19 Interval History: did poorly with bariatric soft diet last night, had increase in waves of pain and required IV morphine and then diluadid. Pain was lower near umbilicus but diffuse. Stopped passing gas since mid afternoon. He declined consideration of NG tube. Transfer nominally accepted at [facility] but no beds available today. KUB today w/o e/o of bowel obstruction. stool in right colon. Vomited up mag citrate. Objective Active Medications: Docusate Sodium (Colace Cap*) 100 mg PO DAILY [facility] Sodium Chloride (Ns 0.9% 1000 Ml) 1,000 mls @ 100 mls/hr IV PER RATE [facility] Last Admin: 04/09/19 12:19 Dose: 100 mls/hr Morphine Sulfate (Morphine Inj (Syringe)*) 4 mg IV Q3H PRN PRN Reason: PAIN - SEVERE Last Admin: 04/09/19 12:06 Dose: 4 mg Ondansetron HCl (Zofran Inj*) 4 mg IV Q6H PRN PRN Reason: NAUSEA Last Admin: 04/09/19 04:26 Dose: 4 mg Pantoprazole Sodium (Protonix Iv*) 40 mg IV Q24H [facility] Last Admin: 04/09/19 08:04 Dose: 40 mg Senna (Senokot 8.6 Mg Tab*) 1 tab PO DAILY PRN PRN Reason: CONSTIPATION Vital Signs - 8 hr 04/09/19 04/09/19 12:06 13:35 Respiratory 18 18 Rate Oxygen Devices in Use Now: None Appearance: more uncomfortable appearing. Eyes: No Scleral Icterus, PERRLA Respiratory: Symmetrical Chest Expansion and Respiratory Effort Cardiovascular: NL Sounds; No Murmurs; No JVD Abdominal: - - no abdominal sounds, tender in RLQ. diagonal abdominal scar. Extremities: No Edema Skin: No Rash or Ulcers Neurological: Alert and Oriented x 3, NL Sensation Result Diagrams: 04/08/19 06:09 04/08/19 06:09 Additional Lab and Data: Laboratory Results - last 24 hr 04/08/19 04/08/19 04/08/19 00:26 00:26 00:26 WBC 5.9 RBC 4.11 L Hgb 12.5 L Hct 36 L MCV 88 MCH 30 MCHC 34 RDW 14 Plt Count 158 MPV 8.3 Neut % (Auto) 63.2 Lymph % (Auto) 28.3 [place] % (Auto) 7.5 Eos % (Auto) 0.7 Baso % (Auto) 0.3 Absolute Neuts (auto) 3.7 Absolute Lymphs (auto) 1.7 Absolute Monos (auto) 0.4 Absolute Eos (auto) 0.0 Absolute Basos (auto) 0.0 Absolute Nucleated RBC 0.0 Nucleated RBC % 0.0 Sodium 136 Potassium 4.0 Chloride 99 L Carbon Dioxide 29 Anion Gap 8 BUN 12 Creatinine 0.72 Est GFR ( Amer) 160.9 Est GFR (Non-Af Amer) 133.0 BUN/Creatinine Ratio 16.7 Glucose 112 H Lactic Acid 0.9 Calcium 9.7 Total Bilirubin 1.20 H AST 45 H ALT 64 H Alkaline Phosphatase 583 H C-Reactive Protein 26.37 H Total Protein 7.3 Albumin 4.1 Globulin 3.2 Albumin/Globulin Ratio 1.3 Lipase 12 Urine Color Urine Appearance Urine pH Ur Specific [place] Urine Protein Urine Ketones Urine Blood Urine Nitrate Urine Bilirubin Urine Urobilinogen Ur Leukocyte Esterase Urine Glucose 04/08/19 04/08/19 04/08/19 04:45 06:09 06:09 WBC 4.2 RBC 3.62 L Hgb 10.7 L Hct 32 L MCV 87 MCH 30 MCHC 34 RDW 14 Plt Count 153 MPV 8.6 Neut % (Auto) 56.1 Lymph % (Auto) 33.4 [place] % (Auto) 8.6 Eos % (Auto) 1.5 Baso % (Auto) 0.4 Absolute Neuts (auto) 2.4 Absolute Lymphs (auto) 1.4 Absolute Monos (auto) 0.4 Absolute Eos (auto) 0.1 Absolute Basos (auto) 0.0 Absolute Nucleated RBC 0.0 Nucleated RBC % 0.1 Sodium 137 Potassium 4.3 Chloride 103 Carbon Dioxide 30 Anion Gap 4 BUN 11 Creatinine 0.71 Est GFR ( Amer) 163.6 Est GFR (Non-Af Amer) 135.2 BUN/Creatinine Ratio 15.5 Glucose 95 Lactic Acid Calcium 9.0 Total Bilirubin 1.00 AST 36 ALT 51 Alkaline Phosphatase 498 H C-Reactive Protein Total Protein 6.1 L Albumin 3.4 Globulin 2.7 Albumin/Globulin Ratio 1.3 Lipase Urine Color Tracie Urine Appearance Clear Urine pH 5.0 Ur Specific [place] 1.026 Urine Protein Negative Urine Ketones Negative Urine Blood Negative Urine Nitrate Negative Urine Bilirubin Negative Urine Urobilinogen Negative Ur Leukocyte Esterase Negative Urine Glucose Negative Assess/Plan/Problems-Billing Assessment: 24 yo male PMH metastatic fibromallelar HCC with recent HDAC inhibitor( panobinostat, stopped Nov due to transaminitis) and intermittent abdominal pain presenting with worse abdominal pain, N/V. CT abd/pelvis was w/o oral contrast, did have some air/fluid levels and borderlin/slight distention in small bowel. Suspect ileus vs constipation vs possible internal hernia or other partial bowel obstruction. Had been passing gas 04/08 but worsened again after diet advancement. Transfer to [facility] pending bed availablity (he has known peritoneal implants that will need to be addressed there at same time if he does have an ex -lap). - Patient Problems (1) Abdominal pain Current Visit: Yes Status: Acute Code(s): R10.9 - UNSPECIFIED ABDOMINAL PAIN SNOMED Code(s): 54459363 Comment: This seems to be acute worsening of sensations he often gets, coming in waves. Certain positioning had been helping (bending forward like a yoga "child pose" seem to help pass gas each time) on 04/08 but that has since stopped. Did not tolerate mechanical soft diet and had increased pain med requirements overnight. [facility] without evidence of small bowel obstruction. Some stool in right colon but vomited up mag citrate. No bowel sounds. Ddx Ileus, internal hernia, constipation. Initial CT ( w/o contrast) had some slight distention of small bowel. Attempting transfer [facility] but no bed available today. has known peritoneal implants that would need to be addressed at that same time if he needs an ex-lap. add senna, colace. (2) Nausea & vomiting Current Visit: Yes Status: Acute Code(s): R11.2 - NAUSEA WITH VOMITING, UNSPECIFIED SNOMED Code(s): 59329575 Comment: ricky gregorion. npo again. (3) Hepatocellular carcinoma Current Visit: No Status: Acute Code(s): C22.0 - LIVER CELL CARCINOMA SNOMED Code(s): 069605988 Comment: s/p 4 resections, undergoing treatment in [facility] Dacron graft in place (4) ADHD (attention deficit hyperactivity disorder), inattentive type Current Visit: No Status: Acute Code(s): F90.0 - ATTN-DEFCT HYPERACTIVITY DISORDER, PREDOM INATTENTIVE TYPE SNOMED Code(s): 17739752 (5) Anemia Current Visit: No Status: Acute Code(s): D64.9 - ANEMIA, UNSPECIFIED SNOMED Code(s): 533617774 Comment: normocytic repeat cbc in AM (6) Major depressive disorder Current Visit: No Status: Acute Code(s): F32.9 - MAJOR DEPRESSIVE DISORDER, SINGLE EPISODE, UNSPECIFIED SNOMED Code(s): 816836741 Status and Disposition: medicine, switch to inpatient. Possible d/c 04/09 or 04/10 if continues improvement.
[2019-04-09] MEDS: HYDROmorphone INJ1* 1 MG/ML SYRINGE IV SLOW PU PRN (22:01)
[2019-04-10] MEDS: Ondansetron INJ* 2 MG/ML VIAL IV PRN ×2 (03:04→10:18)
[2019-04-10] MEDS: HYDROmorphone INJ1* 1 MG/ML SYRINGE IV SLOW PU PRN ×2 (03:05→06:09)
[2019-04-10 05:19] LABS: ABS Lymphocytes 0.8 10^3/ul (1.0-4.8); ABS Monocytes 0.5 10^3/ul (0-0.8); ABS Neutrophils 3.9 10^3/ul (1.5-7.7); Eosinophil % 0.8 %; Hematocrit 35 % (42-52); Hemoglobin 11.8 g/dL (14.0-18.0); Lymphocyte % 15.4 %; Mean Corpuscular HGB Conc 34 g/dL (31-36); Mean Corpuscular Hemoglobin 30 pg (27-31); Mean Corpuscular Volume 87 fL (80-94); Mean Platelet Volume 8.5 fL (7.4-10.4); Nucleated Red Blood Cells % 0.3; Platelet Count 191 10^3/uL (150-450); Red Cell Distribution Width 14 % (10-15); White Blood Count 5.2 10^3/uL (3.5-10.8)
[2019-04-10 05:37] LABS: Albumin 3.6 g/dL (3.2-5.2); Albumin/Globulin Ratio 1.2 (1-3); BUN/Creatinine Ratio 15.7 (8-20); Calcium 9.5 mg/dL (8.6-10.3); EGFR Non-African American 104.2 (>60); Indirect Bilirubin 1.2 mg/dL (0.3-1.0); Magnesium 2.1 mg/dL (1.9-2.7); Potassium 4.2 mmol/L (3.5-5.0); Total Bilirubin 1.9 mg/dL (0.2-1.0); Total Protein 6.6 g/dL (6.4-8.9)
[2019-04-10] MEDS: NS 0.9% 1000 ML** 1,000 ML IV SCH (08:00)
[2019-04-10] MEDS: Pantoprazole IV* 40 MG IV SCH (08:01)
[2019-04-10] MEDS ORDERED: Docusate CAP* 100 MG PO SCH (09:00)
--- NOTE | 2019-04-10 11:28 | DS ---
DISCHARGE SUMMARY/TRANSFER SUMMARY: DATE OF ADMISSION: 04/08/19 DATE OF DISCHARGE: 04/10/19 PRIMARY CARE PROVIDER: Dr. Edward Cintron at [facility]. PRIMARY OUTPATIENT ONCOLOGIST: Dr. Fernando Marcano of [facility]. PRIMARY OUTPATIENT GENERAL SURGEON: Dr. Prudence Durbin of [facility]. ADMITTING PROVIDER: Oni Garcia MD. ATTENDING PHYSICIAN ON DAY OF DISCHARGE: Marcellus Valencia MD. CHIEF COMPLAINT: Abdominal pain, nausea, vomiting. PRINCIPAL DIAGNOSES: Severe abdominal pain secondary to possible ileus versus bowel obstruction (in the setting of known metastatic hepatocellular carcinoma, status post multiple surgeries and known metastatic peritoneal implants) versus constipation. HISTORY OF PRESENT ILLNESS/HOSPITAL COURSE: Schuyler Pop is a 24-year-old male with past medical history of fibrolamellar metastatic hepatocellular carcinoma, status post right hepatic lobe excision and 3 other surgeries including biliary diversion, vascular revision, lymph node retrieval. He had been most recently on an experimental HDAC inhibitor panobinostat between January and February, but this was stopped in the setting of increased liver function tests. He complains of chronic intermittent mild abdominal pain that comes in waves. Please see H&P of Dr. Oni Garcia for full details, but briefly this pattern became more severe the morning of 04/07/19 (day prior to admission) and had been moderate throughout the day waxing and waning in intensity. It was up to a 9/10 level and centered in the epigastric region. He attempted food, vomited it, presented to the emergency room. His last bowel movement had been that morning on 04/07/19. He has an IV contrast allergy, though can tolerate with premedication, and he did have a CT abdomen and pelvis without IV or p.o. contrast in the emergency room. The impression was as follows: 1. Status post partial right hepatectomy with increased surgical clips along the resected margin around GE junction since 05/06/16. 2. Enlarged left hepatic lobe, which appears increased since the prior study. 3. Splenomegaly, which is mildly increased from the prior study. 4. Mild peritoneal ascites, which is new. 5. Peritoneal nodule suggested medial to the posterior aspect of the splenic tip measuring 19 x 16 x 26 mm and is new and may reflect peritoneal implants. 6. Rectal wall thickening with perirectal induration, which is similar to prior study and may reflect distal colitis or proctitis Of note, there was borderline to mild distention of the small bowel with air- fluid levels in the pelvis. There was concern on admission for possible viral gastritis. He was started on IV fluids and antiemetics as well as opioid pain medication. Initial labs included a white count of 5.9, hemoglobin 12.5, creatinine 0.72, total bilirubin 1.2. AST 45, ALT 64, alk phos of 583, CRP of 26. He did begin to pass gas later on in the morning of 04/08/19 and was tolerating water with improved/less frequent spasms of abdominal pain. He was then advanced to a clear liquid diet, which he again tolerated and then advanced to a bariatric soft diet, which he did not tolerate and had increased pain and nausea that night. He was made n.p.o. the morning of hospital day #2, and primary team had been in contact with the primary oncologist Dr. Fernando Marcano of [facility] who had recommended that if any sort of exploratory laparotomy was required that should most likely be done at [facility] given his known metastatic peritoneal implants, which would preferably be addressed at the same time as any sort of surgical exploration. At this point in time, given his worsening symptoms, the fact that he was again no longer passing gas and without bowel sounds, we did recommend transfer to their facility and he was accepted, but it was not until the morning of 04/10/19 when a bed was available. On the day of discharge, his LFTs included T. bili of 1.9 (up from 2 days prior of 1.0) with direct bili 0.7 and indirect bili 1.2. His alk phos was 478, AST 28, ALT 39. Hemoglobin 11.8, white count 5.2, platelets 191. Sodium 137, potassium 4.2, magnesium 2.1. He had lipase on admission of 12. There was an abdominal x-ray obtained the day prior to discharge on 04/09/19, which showed unremarkable bowel gas pattern and moderate stool in the right colon and was negative for small bowel or large bowel loops and no reported concern for small bowel obstruction. He did get a dose of magnesium citrate after that report, but he would vomit that back up despite IV antiemetics with Zofran. He was hemodynamically stable, afebrile throughout the course. He was accepted by pediatric chief resident Dr. Tabatha Joseph with the attending being Dr. Nicky Pack. DISCHARGE MEDICATIONS: Include: 1. Dilaudid 1.5 mg IV q.2 hours. 2. Protonix 40 mg IV q.24 hours. 3. Senokot 1 tab p.o. daily. 4. Docusate 100 mg p.o. daily. 5. Zofran 4 to 8 mg IV q.6 hours p.r.n. His home medications were: 1. Tramadol 50 mg p.o. q.6 hours. 2. Zofran 4 mg p.o. q.6 hours ODT tab. 3. Melatonin 5 mg sublingual q.p.m. p.r.n. for insomnia. 4. Acetaminophen 650 mg p.o. q.6 hours p.r.n. DISCHARGE CONDITION: Guarded. DISPOSITION: [facility] to bed 926A of the pediatric [facility]. DIET: He is currently n.p.o. status with IV fluids also running at 100 cc an hour of normal saline. TIME SPENT ON DISCHARGE/TRANSFER: 40 minutes. [id number]/[facility] #: [id number] JOSÉ MIGUEL
[2019-04-10 12:21] VITALS: BP 112/63
== END 2019-04-10 12:00 | disposition short-term general hospital (02) ==
LOC: ED 23:35 → MED 04-08 02:21
PROVIDERS: ADMIT Internal Medicine; ATTEND Internal Medicine
DX: R10.9 Unspecified abdominal pain (principal); R11.2 Nausea with vomiting, unspecified; C22.0 Liver cell carcinoma; F90.0 Attention-deficit hyperactivity disorder, predominantly inattentive type; D64.9 Anemia, unspecified; F32.9 Major depressive disorder, single episode, unspecified; Z90.89 Acquired absence of other organs; Z79.899 Other long term (current) drug therapy; Z79.01 Long term (current) use of anticoagulants
CPT/HCPCS: 36415; 74018; 74176; 80048; 80053; 80076; 81003; 83605; 83690; 83735; 85025; 86140; 96360; 96361; 96374; 96375; 96376; 99284; A9270-GY; G0378; J1170; J1644; J2270; J2405